=== PATIENT | female | born 1945 | race Caucasian/White ===

== ENCOUNTER 2025-08-19 18:42 | Inpatient (IN) ==
--- NOTE | 2025-08-19 19:36 | XRAY Report ---
PROCEDURE: XR Knee 2V LT INDICATIONS: Trauma TECHNIQUE: 2 views of the knee(s) were acquired. COMPARISON: None. FINDINGS: Markedly comminuted angulated fracture of the left femur distal diaphysis with lateral and posterior angulation of the distal fracture fragment in relation to the proximal diaphysis. Artifacts from overlying clothing or other extrinsic artifacts partially limit radiographic detail. Degenerative changes of the knee partially imaged. Vascular calcifications posteriorly. IMPRESSION: Fracture left femur as discussed above. Follow-up is needed. Reviewed by: Carlos Levi MD on 08/19/2025 7:33 PM PST Approved by: Carlos Levi MD on 08/19/2025 7:33 PM PST Station ID: [id number]
--- NOTE | 2025-08-19 19:40 | XRAY Report ---
PROCEDURE: XR Ankle 3V RT INDICATIONS: Ground-level fall, femur fracture TECHNIQUE: 3 views of the ankle were acquired. COMPARISON: None. FINDINGS: Limited exam. Osteopenia. Artifacts from overlying air cast and other extrinsic artifacts. Mild soft tissue swelling surrounding the right ankle predominantly laterally. On the frontal image #3 there is subtle irregularity at the distal fibula suspicious for nondisplaced transverse fracture. Otherwise no dislocation, no high attenuation soft tissue foreign body. Degenerative changes of the right tibiotalar, subtalar, talonavicular, calcaneocuboid with joint space narrowing and osteophytes. 5 mm posterior calcaneal enthesophyte calcification. IMPRESSION: Suspected nondisplaced fracture right distal fibula. Degenerative changes. If symptoms persist or worsen, or there is high clinical suspicion of right ankle abnormality, CT could be performed. Reviewed by: Carlos Levi MD on 08/19/2025 7:36 PM PST Approved by: Carlos Levi MD on 08/19/2025 7:36 PM PST Station ID: [id number]
--- NOTE | 2025-08-19 19:59 | ED Physician Documentation ---
PD HPI Fall Stated complaint Stated Complaint: GLF Chief complaint Chief Complaint: Ext Problem Additional information Additional information: BIBA. HPI from patient. Patient says she was leaving her house tonight, fell while going down some stairs outside of her house. Patient was using her cane, lost her balance and fell. She complains of right ankle pain, left knee pain. She was given fentanyl en route route by EMS; patient says she had mild improvement in symptoms. Patient denies head injury. Patient denies headache, neck pain, chest pain, abdominal pain, numbness, weakness. Patient does not take blood-thinning medications (except 81mg ASA QOD). Both the ankle and knee pain are worse with any movement, palpation. She has not attempted to weight-bear due to severe exacerbation of pain with movement, particularly the left knee pain. Meds/Allgy Allergies Allergies Allergy/AdvReac Type Severity Reaction Status Date / Time No Known Drug Allergies Allergy Verified 08/19/25 18:53 PFSH Active Problems All Active Problems (Updated 08/20/25 @ 03:20 by Deb Kuo RN, BSN) Hypertension (Chronic) Femur fracture, left (Acute) Ankle fracture, right (Acute) Medical History Medical History (Updated 08/20/25 @ 03:20 by Deb Kuo RN, BSN) Neuropathy Social History Social History Smoking Status: Unknown if ever smoked If you are a former smoker, when did you quit? (Date/Year): 1995 Second hand tobacco smoke exposure: No Do you dip or chew tobacco?: No Do you vape?: No Patient requests smoking cessation consult: No Initiate information on smoking cessation: No Level: Dependent Do you feel safe in your home environment?: Yes History of physical, verbal, emotional, or financial abuse?: No Exam Exam Vital Signs: Vital Signs x48h Temp Pulse Resp BP Pulse Ox 08/20/25 00:00 65 95 08/19/25 22:27 16 08/19/25 22:00 62 22 166/88 H 98 08/19/25 21:51 35.6 C L 60 24 166/88 H 94 Constitutional normal general appearance, no apparent distress and alert HENMT head/scalp atraumatic Eyes PERRL and EOMs intact bilaterally Neck/C-Spine cervical spine nontender and cervical full ROM noted Respiratory breath sounds equal bilaterally and clear to auscultation bilaterally Cardiovascular normal heart rate noted and regular rhythm noted Gastrointestinal abdomen soft to palpation and nontender to palpation Extremities right ankle mild edema, moderate TTP lateral aspect. left distal femur with severe TTP and deformity but no skin defect (such as laceration). NVI BLE (LTS intact in all toes with brisk capillary refill and strong palpable DP pulses, normal skin color of feet/toes bilaterally) Neurology [employer] dean II-XII intact and GCS 15 Psychiatry oriented x3 Skin skin color normal and no lacerations Results Vitals Vitals: Vital Signs - 24 hr 08/19/25 18:46 08/19/25 18:50 08/19/25 20:28 Temperature 36.6 C Temperature Source Skin Pulse Rate 60 Respiratory Rate 19 19 Blood Pressure 166/88 H O2 Saturation 97 O2 Source Room air Room air Sedation scale Pain Intensity 8 8 7 08/19/25 20:50 08/19/25 21:51 08/19/25 22:00 Temperature 35.6 C L 35.6 C L Temperature Source Temporal Artery Scan Temporal Artery Scan Pulse Rate 63 60 62 Respiratory Rate 13 24 22 Blood Pressure 166/88 H 166/88 H 166/88 H O2 Saturation 97 94 98 O2 Source Room air Room air Room air Sedation scale 1-Arouses easily Pain Intensity 3 4 4 08/19/25 22:20 08/19/25 22:27 08/20/25 00:00 Temperature Temperature Source Pulse Rate 65 Respiratory Rate 16 Blood Pressure O2 Saturation 95 O2 Source Room air Sedation scale Pain Intensity 3 0 Oxygen O2 Source Room air Labs Labs: Laboratory Tests 08/19/25 22:23 WBC 10.1 RBC 3.93 L Hgb 11.8 L Hct 36.5 L MCV 92.9 MCH 30.0 MCHC 32.3 RDW 11.9 L Plt Count 125 L MPV 10.0 Neut # (Auto) 8.7 H Lymph # (Auto) 0.8 L Hitchcock # (Auto) 0.5 Eos # (Auto) 0.0 Baso # (Auto) 0.0 Absolute Nucleated RBC 0.00 Nucleated RBC % 0.0 Sodium 138 Potassium 3.8 Chloride 105 Carbon Dioxide 27 Anion Gap 6.0 BUN 17 Creatinine 1.0 Estimated GFR (MDRD) 53 L Glucose 172 H Calcium 8.6 Total Bilirubin 0.6 AST 38 ALT 26 Alkaline Phosphatase 73 Total Protein 5.6 L Albumin 3.2 Globulin 2.4 Albumin/Globulin Ratio 1.3 Rads (name of study) right ankle xrays: Relevant Findings:: Prelim report reviewed and See rad report left knee xrays: Relevant Findings:: Prelim report reviewed and See rad report CTA LLE w/ runoff: Relevant Findings:: Prelim report reviewed and See rad report Procedures Splint (location) - Minor Lower extremity right: Splint applied by: Nurse Type of splint: Ankle airsplint Other: Patient tolerated well, No complications and Neurovascular intact Lower extremity left: Splint applied by: Physician and Nurse Type of splint: Fiberglass, Long leg, Posterior and Stirrup Other: Patient tolerated well, No complications, Neurovascular intact and Good alignment Reduction Body part reduced: Left Fracture or dislocation: Fracture Anesthesia: Dilaudid Reduction aftercare: NV intact, Alignment improved and Splint applied Procedural sedation Pre-Sedation Assessment Date: 08/19/25 Pre-Sedation Assessment Time must be prior to sedation: 20:54 Sedation Prep: Informed consent, Time out completed, Last meal (16:30), PE performed, IV O2 monitor, ET CO2 monitor and RT present ASA: ASA 2 - mild disease Sedation Medications: propofol (30 mg IVP followed by 10mg IVP followed by 10mg IVP for total of 50mg IVP by la) Mallampati classification: II Patient status during sedation: Responds to tactile, Maintained airway and Recovered uneventfully Sedation recovery: Recovered uneventfully and Back to baseline Time in sedation (Minutes): 25 PD Medical Decision Making ED course Complexity details: reviewed results, re-evaluated patient, considered differential and d/w patient ED course: Right ankle x-rays are suspicious for nondisplaced right distal fibula fracture. Left knee x-rays show a markedly comminuted and angulated fracture of the left femur distal diaphysis with lateral and posterior angulation of the distal fr acture fragment in relation to the proximal diaphysis. Patient is given 0.5 mg Dilaudid IV early in ED stay and she reported good analgesia with this intervention. I discussed this case with MACIE Larsen (orthopedics) who relayed the information to Dr. Cosby. Recommendation from orthopedics is to reduce the left knee fracture, placed splints on both the right ankle and the left knee, and obtain CT LLE the with runoff. Under conscious sedation, I reduced the left distal femur fracture. Splints are placed on both the right ankle and the left knee. The CT is without evidence of vascular injury; the CT does show extension of the fracture into the tibiofemoral joint. I recontacted MACIE Larsen with these findings, she again relayed this information to Dr. Cosby, and recommendation is admit to [facility] hospitalist service and Dr. Cosby will likely undertake OR repair of the femur fracture later in the day. I discussed this case with [facility] telehealth who accepts admit to [facility] hospitalist service. Discharge Plan Discharge Patient Disposition: 66 [facility] DC/Xfer Condition: Good Clinical Impression: Ankle fracture, right, Femur fracture, left Interventions: ED Admission Assessment Last Done: 08/20/25 02:53
[2025-08-19] MEDS: HYDROmorphone 0.5 MG/0.5 ML SYRINGE IVP STA (20:28)
[2025-08-19] MEDS: PROPOFOL 200 MG/20 ML VIAL IVP STA (22:18)
[2025-08-19 22:28] LABS: HCT - HEMATOCRIT 36.5 % (37.0-47.0); HGB - HEMOGLOBIN 11.8 g/dL (12.0-16.0); MEAN PLATELET VOLUME 10.0 fL (7.9-10.8); NRBC ABSOLUTE COUNT (AUTO) 0.00 x10^3/uL; NUCLEATED RED BLOOD CELLS AUTO 0.0 /100WBC; PLT - PLATELET COUNT 125 10^3/uL (130-450); RED CELL DISTRIBUTION WIDTH 11.9 % (12.0-15.0)
[2025-08-19 22:42] LABS: ALT ALANINE AMINOTRANSFERASE 26.0 IU/L (10-60); AST ASPARTATE AMINOTRANSFERASE 38.0 IU/L (10-42); BUN - BLOOD UREA NITROGEN 17.0 mg/dL (6-20); CARBON DIOXIDE - CO2 27.0 mmol/L (21-32); CREATININE 1.0 mg/dL (0.6-1.3); GFR - MDRD 53.0 (>89)
[2025-08-19] MEDS: SODIUM CHLORIDE 0.9% 1,000 ML IV STA (23:00)
[2025-08-19] MEDS: ONDANSETRON 4 MG/2 ML VIAL IVP STA (23:59)
--- NOTE | 2025-08-20 00:33 | CT Report ---
PROCEDURE: CT Angio Lower Extremity LT INDICATIONS: left femur fracture CONTRAST: [id number] TECHNIQUE: After the administration of intravenous contrast, a CT scan of the abdomen, pelvis and lower extremities (to the feet) was performed. Images were recorded and evaluated at appropriate window settings. Reformats: coronal and sagittal. For radiation dose reduction, the following was used: automated exposure control, adjustment of mA and/or kV according to patient size. COMPARISON: None. FINDINGS: Image quality: Excellent. Abdominal aorta: No evidence of acute aortic syndrome. No significant aneurysm. No significant atherosclerotic disease. Right lower extremity: Common iliac artery: Atherosclerotic calcifications without significant stenosis. External iliac artery: Atherosclerotic calcifications without significant stenosis. Common femoral artery: Atherosclerotic calcifications without significant stenosis Superficial femoral artery: Atherosclerotic calcifications without significant stenosis. Popliteal artery: Greater than 50% narrowing of the proximal popliteal artery secondary to atherosclerotic calcifications (5/252) Anterior tibial artery: No significant stenosis Peroneal artery: No significant stenosis. Posterior tibial artery: No significant stenosis visualized. Left lower extremity: Common iliac artery: Atherosclerotic calcifications without significant stenosis. External iliac artery: Atherosclerotic calcifications without significant stenosis. Common femoral artery: Atherosclerotic calcifications without significant stenosis. Superficial femoral artery: Atherosclerosis without significant stenosis. Popliteal artery: No significant stenosis.No acute vascular injury, particularly adjacent to the distal femoral fractures. A deep life skills coordinator volunteer off the supragenicular popliteal artery travels in close proximity to the fracture fragments. Anterior tibial artery: No significant atherosclerotic disease. Peroneal artery: No significant atherosclerotic disease. Posterior tibial artery: No significant atherosclerotic disease. OTHER: Lung bases and heart: Mild bibasilar atelectasis. Liver: No solid mass. Gallbladder and biliary tree: Spleen: No splenomegaly. Pancreas: No pancreatic ductal dilation. Adrenals: No adrenal nodule. Kidneys and ureters: Left renal cortical atrophy (severe atherosclerotic disease of the left renal artery). No hydronephrosis. No solid renal mass. Bowel and peritoneum: No bowel distension. No pathologic free fluid. Lymph nodes: No central or retroperitoneal adenopathy. Vessels: No infrarenal aortic aneurysm. Reproductive organs: Hysterectomy Bladder: No abnormal wall thickening, accounting for underdistention. Pelvic lymph nodes: No pelvic adenopathy by size criteria. Bones: Comminuted and mildly displaced distal left femoral fracture involving the distal metadiaphysis and extending into the tibiofemoral joint. Moderate left joint effusion is present. There is mild posterior lateral angulation of the dominant distal fracture fragments. Other: No significant ventral or inguinal hernia. IMPRESSION: Redemonstration of comminuted and mildly displaced distal left femoral fracture, as above. Moderate left knee joint effusion. No acute vascular injury in the left lower extremity. Branches off the supragenicular left popliteal artery traverse in close proximity to the left femoral fracture fragments. 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 Reviewed by: Jennifer Spangler MD on 08/20/2025 12:30 AM PST Approved by: Jennifer Spangler MD on 08/20/2025 12:30 AM PST Station ID: [id number]
[2025-08-20] MEDS ORDERED: hydrALAZINE INJ 20 MG/ML VIAL IVP PRN (01:42)
--- NOTE | 2025-08-20 02:05 | HISTORY & PHYSICAL EXAMINATION ---
Chief Complaint Chief Complaint Chief Complaint: LLE pain after fall History of Present Illness History Obtained From Exam Limitations: telemedicine History of Present Illness HPI Comment/Other: Mrs. Krishna is a 80F with a h/o hypertension. She presented to the ED after a fall. She explained that she was walking down some stairs and lost her balance. she fell on her left side, she did not hit her head. She did not experience any lightheadness or chestpain prior to fall. Imaging demonstrated distal femur fracture as well as left ankle fracture. ED physician discussed case with the orthopedic service who agreed to see her in consultation. This visit was performed using telehealth tools, including phone and live-video. patient provided verbal consent to complete this telemedicine encounter. During the time my interview and evaluation, the patient was located at [facility] in the [facility], I was located in [place]. Meds/Allgy Allergies Allergies Allergy/AdvReac Type Severity Reaction Status Date / Time No Known Drug Allergies Allergy Verified 08/19/25 18:53 PFSH Active Problems All Active Problems (Updated 08/20/25 @ 02:01 by Karena Min MD) Hypertension (Chronic) Femur fracture, left (Acute) Ankle fracture, right (Acute) Social History Social History Do you feel safe in your home environment?: Yes History of physical, verbal, emotional, or financial abuse?: No Review of Systems Status of ROS: 10 or more systems reviewed and unremarkable except as noted in history and below Exam Exam Vital Signs: Vital Signs x48h Temp Pulse Resp BP Pulse Ox 08/20/25 00:00 65 95 08/19/25 22:27 16 08/19/25 22:00 62 22 166/88 H 98 08/19/25 21:51 35.6 C L 60 24 166/88 H 94 08/19/25 20:50 35.6 C L 63 13 166/88 H 97 08/19/25 18:50 19 08/19/25 18:46 36.6 C 60 19 166/88 H 97 Constitutional normal general appearance and no apparent distress Cardiovascular normal heart rate noted and regular rhythm noted Extremities tenderness noted and deformity noted (LLE injury) Neurology no sensory deficits noted Skin skin color normal Conclusion/Plan Problem List (1) Femur fracture, left: Plan: Imaging reviewed: -Xray demonstrated comminuted displaced distal femur fracture with extension into the tibiofibula joint. noted joint effusion -CTA LLE vasculature intact -s/p reduction and splint in the ED -case discussed with orthopedic surgery for further management, Dr. Cosby to see in consultation -continue with neuro-vascular checks -optimize pain management -npo in anticipation of procedure -telemetry and serial vital checks (2) Ankle fracture, right: Plan: imaging reviewed.nondisplaced fracture right distal fibula -s/p splint in the ED -orthopedic consultation pending (3) Hypertension: Plan: home medication reviewed -as needed IV hydralazine for SBP >160 Plan Patient will be admitted to the hospitalist service under inpatient status. greater than 2 midnights expected for management. Lab Results Lab results reviewed: Yes 08/19/25 22:23 08/19/25 22:23 Core Measures Anticipated LOS I expect patient to be DC'd or transferred within 96 hours.: Yes DVT/VTE - Prophylaxis VTE/DVT Device ordered at admit?: Yes
[2025-08-20] MEDS ORDERED: HYDROmorphone 0.5 MG/0.5 ML SYRINGE IVP PRN ×2 (02:32→08:08)
[2025-08-20] MEDS ORDERED: SODIUM CHLORIDE FLUSH 0.9% 10 ML SYRINGE IVP PRN (02:32)
[2025-08-20] MEDS: SODIUM CHLORIDE 0.9% 1,000 ML IV SCH (03:03)
[2025-08-20] MEDS: ACETAMINOPHEN 1,000 MG/100 ML 1,000 MG/100 ML BAG IV PRN (03:06)
[2025-08-20] MEDS: ONDANSETRON 4 MG/2 ML VIAL IVP PRN (03:11)
[2025-08-20 04:38] LABS: HCT - HEMATOCRIT 34.3 % (37.0-47.0); HGB - HEMOGLOBIN 11.3 g/dL (12.0-16.0); MEAN PLATELET VOLUME 10.4 fL (7.9-10.8); NRBC ABSOLUTE COUNT (AUTO) 0.00 x10^3/uL; NUCLEATED RED BLOOD CELLS AUTO 0.0 /100WBC; PLT - PLATELET COUNT 143 10^3/uL (130-450); RED CELL DISTRIBUTION WIDTH 12.0 % (12.0-15.0)
[2025-08-20 04:54] LABS: BUN - BLOOD UREA NITROGEN 16.0 mg/dL (6-20); CARBON DIOXIDE - CO2 25.0 mmol/L (21-32); CREATININE 1.0 mg/dL (0.6-1.3); GFR - MDRD 53.0 (>89)
--- NOTE | 2025-08-20 07:36 | CONSULTATION NOTE ---
Referring Provider Name of Referring Provider:: Marcus Consult Date: 08/19/25 Chief Complaint Chief Complaint Chief Complaint: Left distal femur fracture; right distal fibular fracture; History of Present Illness History of Present Illness HPI Comment/Other: Consulted 08/19/25 on this 80-year-old female status post fall for comminuted angulated fracture of the left distal femur diaphysis and right distal fibular fracture. Patient states that she was rushing to do something outside in the dark and tripped and fell. She reports no other injuries. She also reports that her pain has been well-controlled overnight. [facility] Active Problems All Active Problems (Updated 08/20/25 @ 08:15 by Kianna Larsen PA-C) Neuropathy (Acute) Hypertension (Chronic) Femur fracture, left (Acute) Ankle fracture, right (Acute) Medical History Medical History (Updated 08/20/25 @ 08:15 by Kianna Larsen PA-C) Coronary artery disease Hyperlipidemia Surgical History Surgical History (Updated 08/20/25 @ 08:16 by Kianna Larsen PA-C) History of hysterectomy History of spinal fusion S/P CABG x 5 Social History Social History (Updated 08/20/25 @ 08:17 by Kianna Larsen PA-C) Smoking Status: Former smoker If you are a former smoker, when did you quit? (Date/Year): 1995 Second hand tobacco smoke exposure: No Do you dip or chew tobacco?: No Do you vape?: No Patient requests smoking cessation consult: No Initiate information on smoking cessation: No Level: Dependent Home Mobility Equipment: Cane and Walker Do you feel safe in your home environment?: Yes History of physical, verbal, emotional, or financial abuse?: No Meds/Allgy Home Medications Ambulatory Orders Medication Instructions Recorded Confirmed atenolol 50 mg tablet 50 mg PO DAILY 08/20/25 Allergies Allergies Allergy/AdvReac Type Severity Reaction Status Date / Time No Known Drug Allergies Allergy Verified 08/19/25 18:53 Results Lab Results Lab results reviewed: Yes 08/20/25 04:11 08/20/25 04:11 Other Lab Results: Lab Results x24hrs 08/20/25 08/19/25 Range/Units 04:11 22:23 WBC 9.1 10.1 (4.8-10.8) x10^3/uL RBC 3.69 L 3.93 L (4.20-5.40) 10^6/uL Hgb 11.3 L 11.8 L (12.0-16.0) g/dL Hct 34.3 L 36.5 L (37.0-47.0) % MCV 93.0 92.9 (81.0-99.0) fL MCH 30.6 30.0 (27.0-31.0) pg MCHC 32.9 32.3 (32.0-36.0) g/dL RDW 12.0 11.9 L (12.0-15.0) % Plt Count 143 125 L (130-450) 10^3/uL MPV 10.4 10.0 (7.9-10.8) fL Neut # (Auto) 7.6 H 8.7 H (1.5-6.6) 10^3/uL Lymph # (Auto) 1.0 L 0.8 L (1.5-3.5) 10^3/uL Iron # (Auto) 0.5 0.5 (0.0-1.0) 10^3/uL Eos # (Auto) 0.0 0.0 (0.0-0.7) 10^3/uL Baso # (Auto) 0.0 0.0 (0.0-0.1) 10^3/uL Absolute Nucleated RBC 0.00 0.00 x10^3/uL Nucleated RBC % 0.0 0.0 /100WBC Sodium 137 138 (135-145) mmol/L Potassium 3.8 3.8 (3.5-4.5) mmol/L Chloride 105 105 (101-111) mmol/L Carbon Dioxide 25 27 (21-32) mmol/L Anion Gap 7.0 6.0 (6-13) BUN 16 17 (6-20) mg/dL Creatinine 1.0 1.0 (0.6-1.3) mg/dL Estimated GFR (MDRD) 53 L 53 L (>89) Glucose 161 H 172 H (74-104) mg/dL Calcium 8.4 L 8.6 (8.5-10.3) mg/dL Total Bilirubin 0.6 (0.2-1.0) mg/dL AST 38 (10-42) IU/L ALT 26 (10-60) IU/L Alkaline Phosphatase 73 (42-121) IU/L Total Protein 5.6 L (6.4-8.9) g/dL Albumin 3.2 (3.2-5.5) g/dL Globulin 2.4 (2.1-4.2) g/dL Albumin/Globulin Ratio 1.3 (1.0-2.2) Diagnostic Imaging Results Diagnostic Imaging Results: positive Final report reviewed Diagnostic Imaging Results Comments: 09/11/25: XR L knee: Markedly comminuted angulated fracture of the left femur distal diaphysis with lateral and posterior angulation of the distal fracture fragment in relation to the proximal diaphysis. 08/19/25: XR R Ankle: Suspected nondisplaced fracture right distal fibula. Degenerative changes. If symptoms persist or worsen, or there is high clinical suspicion of right ankle abnormality, CT could be performed. 08/19/25 CTA LLE: Redemonstration of comminuted and mildly displaced distal left femoral fracture, as above. Moderate left knee joint effusion. No acute vascular injury in the left lower extremity. Branches off the supragenicular left popliteal artery traverse in close proximity to the left femoral fracture fragments. 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 Review of Systems Status of ROS: 10 or more systems reviewed and unremarkable except as noted in history and below Exam Exam Vital Signs: Vital Signs x48h Temp Pulse Pulse Resp BP Pulse Ox 08/20/25 05:19 36.2 C L 65 16 94/50 L 96 08/20/25 02:53 16 97 08/20/25 02:28 36.5 C 66 20 140/79 H 97 08/20/25 02:00 21 95 08/20/25 00:00 65 95 General appearance: alert, awake, oriented x 3, well-nourished Fracture: R distal fibula; L distal femur Head/Eyes: atraumatic Extremities/Vascular: pedal pulses intact, radial pulses intact Musculoskeletal: LLE splinted; NVI distally; dressing was not removed. R ankle in aircast; lateral edema & ecchymosis; non-TTP medial/deltoid Neuro/DISH CARRIER: alert, follows commands; NVI Skin: warm, dry, intact, without erythema, warmth, ecchymosis or obvious clinical deformity Psychiatry: normal affect Conclusion/Plan Problem List (1) Femur fracture, left: Qualifiers: Encounter type: initial encounter Femur location: distal physis (incl. Salter-Hicks) (2) Ankle fracture, right: Qualifiers: Encounter type: initial encounter Fracture type: closed Qualified Code(s): S82.891A - Other fracture of right lower leg, initial encounter for closed fracture Plan 80-year-old female status post mechanical fall resulting in: - Right distal fibular fracture - closed nondisplaced comminuted mildly displaced left femoral fracture without vascular injury Plan med mgmt per internal medicine bed rest pending definitive fixation OCTOR this morning with Dr. Cosby NPO; resume home diet postop pain control; bowel regimen IS anticoagulation per primary; resume postop PT/OT: WBAT with aircast RLE; NWB LLE pending updated orders from ortho CM for placement DW Dr. Cosby Lab Results Lab results reviewed: Yes 08/20/25 04:11 08/20/25 04:11 Diagnostic Imaging Results Diagnostic Imaging Results: positive Final report reviewed
[2025-08-20] MEDS ORDERED: ACETAMINOPHEN 1,000 MG/100 ML 1,000 MG/100 ML BAG IV PRN (08:04)
[2025-08-20] MEDS ORDERED: ONDANSETRON 4 MG/2 ML VIAL IVP PRN (08:08)
[2025-08-20] MEDS ORDERED: fentaNYL 100 MCG/2 ML VIAL IVP PRN (08:08)
[2025-08-20] MEDS ORDERED: METOCLOPRAMIDE 10 MG/2 ML VIAL IVP PRN (08:08)
[2025-08-20] MEDS ORDERED: NALOXONE 0.4 MG/ML VIAL IVP PRN (08:08)
[2025-08-20] MEDS ORDERED: MORPHINE 2 MG/ML CARPUJECT IVP PRN (08:08)
[2025-08-20] MEDS ORDERED: ATROPINE ABBOJECT 1 MG/10 ML SYRINGE IVP PRN (08:08)
[2025-08-20] MEDS ORDERED: ePHEDrine 50 MG/ML VIAL IVP PRN (08:08)
[2025-08-20] MEDS: LACTATED RINGERS 1,000 ML IV SCH (08:32)
[2025-08-20] MEDS: SODIUM CHLORIDE FLUSH 0.9% 10 ML SYRINGE IVP SCH (08:40)
[2025-08-20] MEDS ORDERED: HEPARIN 5,000 UNIT/ML VIAL SUBQ SCH (09:00)
--- NOTE | 2025-08-20 11:58 | PHARMACY PROGRESS NOTE ---
Best Possible Medication History Admit Date and Time: 08/20/25 0130 Home Medications Medication Instructions Recorded Confirmed Type atenolol 50 mg tablet 50 mg PO QAM 08/20/25 History psyllium 1 packet PO PRN PRN constipa tion 08/20/25 08/20/25 History Processed by: Pharmacy (Medication reconciliation completed by Document Processing Specialist, Nicole) Medications reviewed in ED?: No Medication History completed: Yes Patient Interview: Completed Secondary Source(s): Pharmacy records [facility] Statement: As the person ultimately responsible for medication therapy, providers are able to order a medication from an existing home medication list in [facility] via the "Reconcile Routine" prior to Confirmation of that medication by customer support executive. Such practice is discouraged except when the physician, in their clinical judgment, deems that a medical need exists for a medication without regard to previous use.
--- NOTE | 2025-08-20 12:23 | ANESTHESIA PROCEDURE NOTE ---
Pre-Anesthesia VS, & Labs Diagnosis Surgical Diagnosis:: Left femur fracture Procedure Procedure: ORIF left femur Vitals Vital Signs: Temp Pulse Resp BP Pulse Ox 98.8 C H 75 16 112/47 L 97 08/20/25 07:55 08/20/25 07:55 08/20/25 07:55 08/20/25 07:55 08/20/25 07:55 NPO NPO: >8 hours Is Patient ?: Not Applicable Lab Results Current Lab Results: Laboratory Tests 08/20/25 04:11: WBC 9.1, RBC 3.69 L, Hgb 11.3 L, Hct 34.3 L, MCV 93.0, MCH 30.6, MCHC 32.9, RDW 12.0, Plt Count 143, MPV 10.4, Neut # (Auto) 7.6 H, Lymph # (Auto) 1.0 L, [place] # (Auto) 0.5, Eos # (Auto) 0.0, Baso # (Auto) 0.0, Absolute Nucleated RBC 0.00, Nucleated RBC % 0.0, Sodium 137, Potassium 3.8, Chloride 105, Carbon Dioxide 25, Anion Gap 7.0, BUN 16, Creatinine 1.0, Estimated GFR (MDRD) 53 L, Glucose 161 H, Calcium 8.4 L 08/19/25 22:23: WBC 10.1, RBC 3.93 L, Hgb 11.8 L, Hct 36.5 L, MCV 92.9, MCH 30.0, MCHC 32.3, RDW 11.9 L, Plt Count 125 L, MPV 10.0, Neut # (Auto) 8.7 H, L ymph # (Auto) 0.8 L, [place] # (Auto) 0.5, Eos # (Auto) 0.0, Baso # (Auto) 0.0, Absolute Nucleated RBC 0.00, Nucleated RBC % 0.0, Sodium 138, Potassium 3.8, Chloride 105, Carbon Dioxide 27, Anion Gap 6.0, BUN 17, Creatinine 1.0, E stimated GFR (MDRD) 53 L, Glucose 172 H, Calcium 8.6, Total Bilirubin 0.6, AST 38, ALT 26, Alkaline Phosphatase 73, Total Protein 5.6 L, Albumin 3.2, Globulin 2.4, Albumin/Globulin Ratio 1.3 Lab results reviewed: Yes 08/20/25 04:11 08/20/25 04:11 Meds/Allgy Home Medications Ambulatory Orders Medication Instructions Recorded Confirmed atenolol 50 mg tablet 50 mg PO QAM 08/20/25 psyllium 1 packet PO PRN PRN constipa tion 08/20/25 08/20/25 Allergies Allergies Allergy/AdvReac Type Severity Reaction Status Date / Time No Known Drug Allergies Allergy Verified 08/19/25 18:53 PFSH Active Problems All Active Problems Neuropathy (Acute) Hypertension (Chronic) Femur fracture, left (Acute) Ankle fracture, right (Acute) Medical History Medical History Coronary artery disease Hyperlipidemia Surgical History Surgical History History of hysterectomy History of spinal fusion S/P CABG x 5 Social History Social History Smoking Status: Former smoker If you are a former smoker, when did you quit? (Date/Year): 1995 Second hand tobacco smoke exposure: No Do you dip or chew tobacco?: No Do you vape?: No Patient requests smoking cessation consult: No Initiate information on smoking cessation: No Level: Dependent Home Mobility Equipment: Cane and Walker Do you feel safe in your home environment?: Yes History of physical, verbal, emotional, or financial abuse?: No Anesthesia Exam (Expanded) Exam General: Alert, Oriented x3 and Cooperative Dental: Dentures full Upper and Dentures full Lower Mouth Openin Fingerbreadth Neck Mobility: Normal Mallampati classification: II Thyromental Distance: 4-6 cm Respiratory: Lungs clear and Normal breath sounds Cardiovascular: Regular rate Neurological: Normal speech Mental/Cognitive Status: Alert/Oriented X3 and Normal for patient Cognitive Status: Within normal limits Exam Exam Vital Signs: Vital Signs x48h Temp Pulse Resp BP BP Pulse Ox 08/20/25 07:55 98.8 C H 75 16 112/47 L 97 08/20/25 05:19 36.2 C L 65 16 94/50 L 96 Constitutional normal general appearance and no apparent distress Neck/C-Spine cervical full ROM noted Respiratory breath sounds equal bilaterally and normal respiratory effort Cardiovascular normal heart rate noted and regular rhythm noted Extremities Left femur fracture Neurology speech normal Plan Problem List (1) Femur fracture, left: Qualifiers: Encounter type: initial encounter Femur location: distal physis (incl. Salter-Hicks) (2) Ankle fracture, right: Qualifiers: Encounter type: initial encounter Fracture type: closed Qualified Code(s): S82.891A - Other fracture of right lower leg, initial encounter for closed fracture Plan 80-year-old female status post mechanical fall resulting in: - Right distal fibular fracture - closed nondisplaced comminuted mildly displaced left femoral fracture without vascular injury Plan med mgmt per internal medicine bed rest pending definitive fixation OCTOR this morning with Dr. Cosby NPO; resume home diet postop pain control; bowel regimen IS anticoagulation per primary; resume postop PT/OT: WBAT with aircast RLE; NWB LLE pending updated orders from ortho CM for placement DW Dr. Cosby Plan Anesthesia Type: General and Fascia [place] Block Regional Block: Per Surgeon's request for Post Op pain control Consent for Procedure(s) Verified and Reviewed: Yes Code Status: Attempt Resuscitation ASA Classification ASA classification: 3-Severe systemic disease Is this case an emergency?: Yes
[2025-08-20] MEDS ORDERED: BUPIVACAINE 0.25% PF 30 ML VIAL ONE (12:33)
[2025-08-20] MEDS ORDERED: fentaNYL 100 MCG/2 ML VIAL ONE (12:44)
[2025-08-20] MEDS ORDERED: MIDAZOLAM 2 MG/2 ML VIAL ONE (12:44)
[2025-08-20] MEDS ORDERED: LIDOCAINE-PF 2% 10 ML AMP SUBQ ONE (12:44)
[2025-08-20] MEDS ORDERED: PROPOFOL 200 MG/20 ML VIAL IVP ONE (12:45)
[2025-08-20] MEDS ORDERED: ACETAMINOPHEN 1,000 MG/100 ML 1,000 MG/100 ML BAG IV ONE (13:34)
[2025-08-20] MEDS: ceFAZolin 1 GM in SODIUM CHLORIDE 0.9% MINIBAG 100 ML IV ONE (13:37)
[2025-08-20] MEDS ORDERED: DEXAMETHASONE 4 MG/ML VIAL ONE (14:17)
[2025-08-20] MEDS ORDERED: ONDANSETRON 4 MG/2 ML VIAL ONE (14:17)
[2025-08-20] MEDS ORDERED: ROPIVACAINE 0.5% PF 20 ML VIAL ONE (15:00)
--- NOTE | 2025-08-20 15:57 | ANESTHESIA POST OP EVALUATION ---
Anesthesia Post Eval Post Anesthesia Eval Vitals: Last Vital Signs Temp 36.3 C L 08/20/25 15:50 Pulse 70 08/20/25 15:50 Resp 14 08/20/25 15:50 BP 93/58 L 08/20/25 15:50 Pulse Ox 97 08/20/25 15:50 CV Function Including HR & BP: Stable Pain Control: Satisfactory Nausea & Vomiting: Negative Mental Status: Baseline Respiratory Status: Airway Patent Hydration Status: Satisfactory Anesthesia Complications: None
--- NOTE | 2025-08-20 16:13 | XRAY Report ---
INDICATIONS: intra-op use TECHNIQUE: Interoperative fluoroscopic support COMPARISON: None. FINDINGS/IMPRESSION: Postoperative images during distal femoral fracture fixation. Please see operative report for further details Reviewed by: Gaudencio Marie MD on 08/20/2025 4:09 PM PST Approved by: Gaudencio Marie MD on 08/20/2025 4:09 PM PST Station ID: [id number]
[2025-08-20] MEDS: LACTATED RINGERS 500 ML IV ONE (18:33)
[2025-08-20 20:04] LABS: HCT - HEMATOCRIT 27.1 % (37.0-47.0); HGB - HEMOGLOBIN 8.4 g/dL (12.0-16.0)
[2025-08-21] MEDS: ACETAMINOPHEN 325 MG TABLET PO PRN (02:22)
[2025-08-21] MEDS: oxyCODONE 5 MG TABLET PO PRN (04:21)
--- NOTE | 2025-08-21 07:41 | POST OP PROGRESS NOTE ---
Subjective General Admit Date: 08/20/25 Procedure Date: 08/20/25 Post Op Days: 1 Procedure Performed: Retrograde nail left distal femur Other Other Information/Narrative: Pt w/o complaint. Pain controlled. Ortho Surgical Progress Note Problem List Problem List: med mgmt per primary pain control; bowel regimen OOB to chair & ambulate DVT prophylaxis: continue lovenox if sent to SNF/rehab; pt may also be dc'd on EC ASA 325 mg BID; continue until DC'd by ortho f/u ortho 10-14 days for staple removal PT/OT: strict NWB LLE; Gentle ROM L Knee as tolerated. WBAT RLE with aircast reinforce dressing PRN; change to silver dressing at DC; may continue compression wrap IS Pt may DC from ortho standpoint when cleared by medicine team DW Dr. Cosby Discharge Instructions: as above Review of Systems Status of ROS: 10 or more systems reviewed and unremarkable except as noted in history and below Exam Exam Vital Signs: Vital Signs x48h Temp Pulse Resp BP 08/21/25 02:45 36.8 C 72 16 104/43 L 08/21/25 01:45 37.2 C 80 16 108/53 L General appearance: alert, awake, oriented x 3, well-nourished Fracture: R distal fibula; L distal femur Head/Eyes: atraumatic Extremities/Vascular: pedal pulses intact, radial pulses intact; Compartments soft. Musculoskeletal: LLE Dressing clean dry intact. Compartments soft. NVI distally; dressing was not removed. 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
[2025-08-21 07:53] LABS: HCT - HEMATOCRIT 25.6 % (37.0-47.0); HGB - HEMOGLOBIN 8.7 g/dL (12.0-16.0); MEAN PLATELET VOLUME 9.9 fL (7.9-10.8); PLT - PLATELET COUNT 104.0 10^3/uL (130-450); RED CELL DISTRIBUTION WIDTH 12.7 % (12.0-15.0)
[2025-08-21 08:01] LABS: BUN - BLOOD UREA NITROGEN 18.0 mg/dL (6-20); CARBON DIOXIDE - CO2 25.0 mmol/L (21-32); CREATININE 1.1 mg/dL (0.6-1.3); GFR - MDRD 48.0 (>89)
[2025-08-21] MEDS: ceFAZolin 1 GM in SODIUM CHLORIDE 0.9% MINIBAG 100 ML IV SCH (08:06)
[2025-08-21] MEDS: ASPIRIN EC 325 MG TABLET PO SCH (08:59)
[2025-08-21] MEDS: MAGNESIUM OXIDE 400 MG TABLET PO SCH (09:00)
--- NOTE | 2025-08-21 11:34 | PROVIDER PROGRESS NOTE ---
Subjective Subjective Subjective: Yesterday, after surgery, patient had an episode of lethargy associated with hypotension. When her hemoglobin was rechecked, it was found to be 3 points lower. She is given a unit of blood. This morning, she is in good spirits. She has minimal pain in her left hip. She does endorse some pain in her left knee. She denies feeling lightheaded or dizzy. She is eager to start eating. She ate most of her breakfast; she states this was the first meal she has had since she is fallen. She understands that she has to work with physical therapy today, and is open to rehab. Current Medications Current Medications Current Medications: Current Medications Generic Name Dose Route Start Last Admin Trade Name Freq PRN Reason Stop Dose Admin Acetaminophen 650 mg 08/20/25 08:04 08/21/25 02:22 Acetaminophen 325 Mg Tablet PO 650 mg Q4HR PRN Administration Pain or Fever > 38C (100.4F) Aspirin 325 mg 08/21/25 09:00 08/21/25 08:59 Aspirin Ec 325 Mg Tablet PO 325 mg BID LUZ Administration Hydromorphone HCl 0.5 mg 08/20/25 02:32 Hydromorphone 0.5 Mg/0.5 Ml Syringe IVP Q2H PRN Pain 8 to 10 Sodium Chloride 1,000 mls @ 125 mls/hr 08/20/25 02:32 08/21/25 04:22 Normal Saline 0.9% IV 125 mls/hr .Q8H LUZ Administration Magnesium Oxide 400 mg 08/21/25 08:00 08/21/25 09:00 Magnesium Oxide 400 Mg Tablet PO 400 mg DAILYWM LUZ Administration Ondansetron HCl 4 mg 08/20/25 02:32 08/21/25 04:21 Ondansetron 4 Mg/2 Ml Vial IVP 4 mg Q6HR PRN Administration Nausea / Vomiting Oxycodone HCl 5 mg 08/20/25 08:04 08/21/25 04:21 Oxycodone 5 Mg Tablet PO 5 mg Q4HR PRN Administration Moderate Pain (Level 4-6) Sodium Chloride 10 ml 08/20/25 02:32 Sodium Chloride Flush 0.9% 10 Ml Syringe IVP PRN PRN NEEDED PER PROVIDER ORDERS Sodium Chloride 10 ml 08/20/25 09:00 08/21/25 09:00 Sodium Chloride Flush 0.9% 10 Ml Syringe IVP 10 ml 0100,0900,1700 LUZ Administration Objective Vital Signs/Intake & Output Reviewed Vital Signs: Yes Vital Signs: Vital Signs x48h Temp Pulse Resp BP Pulse Ox 08/21/25 08:20 97.7 F 72 20 101/48 L 97 Intake & Output: Intake & Output 08/18/25 08/19/25 08/20/25 08/21/25 23:59 23:59 23:59 23:59 Intake Total 2997 / 2997 2845 / 2845 Output Total 1050 / 1050 500 / 500 Balance 194 / 194 2345 / 2345 Weight (kg) 58.06 kg 64.5 kg Objective General Appearance: positive No acute distress and Alert; negative Anxious Eyes Bilateral: positive Normal inspection, PERRL and EOMI ENT: positive ENT inspection nml, Pharynx nml and No signs of dehydration Neck: positive Nml inspection, Thyroid nml and No JVD Respiratory: positive Chest non-tender, No respiratory distress and Breath sounds nml; negative Wheezes, Rales or Rhonchi Cardiovascular: positive Regular rate & rhythm, No murmur and No gallop; negative Tachycardia or Systolic murmur Abdomen: positive Non-tender, No organomegaly and No distention; negative Guarding or Splenomegaly Back: positive Nml inspection; negative CVA tenderness (R) or CVA tenderness (L) Skin: positive Color nml, No rash, Warm and Dry Extremities: positive Full ROM (Limited range of motion of left lower extremity due to pain. Able to wiggle bilateral toes. DP and PT pulses intact bilaterally.) and Other (Left lower extremity with Kerlix noted on left anterior hip with minimal drainage or bleeding. Fredo wrap all down left leg. Some bruising noted around left knee. Right ankle with extensive ecchymosis throughout with Fredo wrap in place.) Neurologic/Psychiatric: positive Oriented x3 and Mood/affect nml Lab Results 08/21/25 07:36 08/21/25 07:36 Other Labs: Lab Results x24hrs 08/21/25 08/20/25 08/20/25 Range/Units 07:36 21:15 19:55 WBC 8.5 (4.8-10.8) x10^3/uL RBC 2.77 L (4.20-5.40) 10^6/uL Hgb 8.7 L 8.4 L (12.0-16.0) g/dL Hct 25.6 L 27.1 L (37.0-47.0) % MCV 92.4 (81.0-99.0) fL MCH 31.4 H (27.0-31.0) pg MCHC 34.0 (32.0-36.0) g/dL RDW 12.7 (12.0-15.0) % Plt Count 104 L (130-450) 10^3/uL MPV 9.9 (7.9-10.8) fL Sodium 140 (135-145) mmol/L Potassium 3.8 (3.5-4.5) mmol/L Chloride 110 (101-111) mmol/L Carbon Dioxide 25 (21-32) mmol/L Anion Gap 5.0 L (6-13) BUN 18 (6-20) mg/dL Creatinine 1.1 (0.6-1.3) mg/dL Estimated GFR (MDRD) 48 L (>89) Glucose 109 H (74-104) mg/dL Calcium 7.7 L (8.5-10.3) mg/dL Magnesium 1.5 L (1.7-2.3) mg/dL Blood Type O POSITIVE Blood Type Recheck Antibody Screen NEGATIVE Crossmatch IS Only See Detail 08/20/25 Range/Units 04:11 WBC (4.8-10.8) x10^3/uL RBC (4.20-5.40) 10^6/uL Hgb (12.0-16.0) g/dL Hct (37.0-47.0) % MCV (81.0-99.0) fL MCH (27.0-31.0) pg MCHC (32.0-36.0) g/dL RDW (12.0-15.0) % Plt Count (130-450) 10^3/uL MPV (7.9-10.8) fL Sodium (135-145) mmol/L Potassium (3.5-4.5) mmol/L Chloride (101-111) mmol/L Carbon Dioxide (21-32) mmol/L Anion Gap (6-13) BUN (6-20) mg/dL Creatinine (0.6-1.3) mg/dL Estimated GFR (MDRD) (>89) Glucose (74-104) mg/dL Calcium (8.5-10.3) mg/dL Magnesium (1.7-2.3) mg/dL Blood Type Blood Type Recheck O POSITIVE Antibody Screen Crossmatch IS Only Assessment/Plan Problem List (1) Femur fracture, left: Impression: Patient presented with a comminuted angulated fracture of the left distal femur diaphysis and right distal fibular fracture. Completed retrograde intramedullary nail for fixation on 08/20. Tolerated the procedure well. Orthopedic surgery following: Recommended DC on aspirin 325 mg twice a day to be continued until discontinued by orthopedic surgery. Follow-up with them in 10 to 14 days for staple removal. Strict nonweightbearing on left lower extremity. For dressing, they recommend changing as needed, can be changes to with dressing at discharge, and can continue compression wrap. Continue pain control with Tylenol as needed for mild pain, oxycodone for moderate pain, and Dilaudid for severe pain. Plan to work with physical therapy today. Likely will recommend SNF on discharge. Qualifiers: Encounter type: subsequent encounter Femur location: distal physis (incl. Salter-Hicks) Fracture healing: with routine healing Salter-Hicks Fracture Type: unspecified configuration Qualified Code(s): S79.102D - Unspecified physeal fracture of lower end of left femur, subsequent encounter for fracture with routine healing (2) Ankle fracture, right: Impression: Right distal fibular fracture to be managed nonoperatively, can be weightbearing as tolerated with Aircast of the right lower extremity. Qualifiers: Encounter type: initial encounter Fracture type: closed Qualified Code(s): S82.891A - Other fracture of right lower leg, initial encounter for closed fracture (3) Hypertension: Impression: Patient with a history of hypertension. Hold atenolol at this time due to borderline low blood pressures. Qualifiers: Hypertension type: unspecified Qualified Code(s): I10 - Essential (primary) hypertension (4) S/P CABG x 5: Impression: Patient with a history of coronary artery disease s/p CABG x 5 in 1995. Has had uneventful cardiac history since then, follows with cardiology annually (in [place]). Maintained on aspirin daily. Currently, on a higher dose of aspirin for DVT prophylaxiscontinue 81 mg daily once this course has been completed as per recommended by orthopedic surgery.
--- NOTE | 2025-08-21 14:01 | PT Plan of Care ---
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 Pt reports h/o cervical spine fusion in 2023 to treat BUE neuropathy without change in neuropathy symptoms. Pt reports pain and sens ory changes in all 4 limbs, worst in RUE and RLE. Occasional spasms/tremors in RLE. Pt states her doctors are unclear of cause of these symptoms. Cleared for PT eval by ortho and hospitalist. RLE WBAT with aircast and LLE STRICT NWB. Upon PT eval, pt reports minimal pain at rest but is concerned about pain with movement. Pre medicated per RN. Pt participates well and follows all cues appropriately, able to transfer to EOB with mod to maxA. Unable to maintain seated EOB primarily d/t IV bleeding, secondarily d/t RLE spasms and difficulty maintaining seated d/t spasms and pain. Pt requires maxAx1 for sit to supine transfer. Able to participate in rolling and bed mobility with modAx1. Pt presents with complex medical and surgical hx and limited mobility d/t injuries and WBing status. She will benefit from continued skilled PT in acute setting to progress mobility and functional indep. When medically clear, PT rec dc to SNF for further rehab. Goals Improve bed mobility to: Minimal Assist Improve supine to sit to: Minimal Assist Improve sit to stand to: Moderate Assist Improve pivot transfer ability Moderate Assist to: Improve sit to supine to: Minimal Assist Improve gait ability to: Mod A Assistive Device Used: Front Wheeled Walker Other gait goal: maintain WBing precautions 100% of time Improve Sitting Balance to: Good Improve Standing Balance to: Fair PT Plan of Care Frequency 1-2x/day Duration Until discharge Discharge Recommendations [facility] Other tbd Transport Needs at Discharge [facility] Other BLS d/t subacute fx's, limited trunk control
[2025-08-22 06:58] LABS: HCT - HEMATOCRIT 23.9 % (37.0-47.0); HGB - HEMOGLOBIN 7.8 g/dL (12.0-16.0); MEAN PLATELET VOLUME 10.7 fL (7.9-10.8); PLT - PLATELET COUNT 95.0 10^3/uL (130-450); RED CELL DISTRIBUTION WIDTH 12.7 % (12.0-15.0)
[2025-08-22 07:10] LABS: BUN - BLOOD UREA NITROGEN 16.0 mg/dL (6-20); CARBON DIOXIDE - CO2 25.0 mmol/L (21-32); CREATININE 0.9 mg/dL (0.6-1.3); GFR - MDRD 60.0 (>89)
--- NOTE | 2025-08-22 09:21 | POST OP PROGRESS NOTE ---
Subjective General Admit Date: 08/20/25 Procedure Date: 08/20/25 Post Op Days: 2 Procedure Performed: Retrograde nail left distal femur Other Other Information/Narrative: Pt w/o new complaint; pain currently controlled. Per nursing, pt has not been moving d/t fear of pain. Ortho Surgical Progress Note Problem List Problem List: med mgmt per primary pain control; bowel regimen OOB to chair & ambulate DVT prophylaxis: continue lovenox if sent to SNF/rehab; pt may also be dc'd on EC ASA 325 mg BID; continue until DC'd by ortho f/u ortho 10-14 days for staple removal PT/OT: strict NWB LLE; Gentle ROM L Knee as tolerated. WBAT RLE with aircast reinforce dressing PRN; change to silver dressing at DC; may continue compression wrap IS willfollow & re-assess for DC 08/23/[address] Cosby Discharge Instructions: as above Review of Systems Status of ROS: 10 or more systems reviewed and unremarkable except as noted in history and below Exam Exam Vital Signs: Vital Signs x48h Temp Pulse Resp BP Pulse Ox 08/22/25 08:11 36.7 C 99 14 117/60 94 General appearance: alert, awake, oriented x 3, well-nourished Fracture: R distal fibula; L distal femur Head/Eyes: atraumatic Extremities/Vascular: pedal pulses intact, radial pulses intact; Compartments soft. Musculoskeletal: LLE Dressing clean dry intact. Compartments soft. NVI distally; dressing was not removed. 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
--- NOTE | 2025-08-22 12:27 | PROVIDER PROGRESS NOTE ---
Subjective Subjective Subjective: Today, patient is doing well. She is having spasms in her legs. She was able to sit on the side of bed but had some pain associated with it. She is looking forward to rehab. Current Medications Current Medications Current Medications: Current Medications Generic Name Dose Route Start Last Admin Trade Name Freq PRN Reason Stop Dose Admin Acetaminophen 650 mg 08/20/25 08:04 08/21/25 12:43 Acetaminophen 325 Mg Tablet PO 650 mg Q4HR PRN Administration Pain or Fever > 38C (100.4F) Aspirin 325 mg 08/21/25 09:00 08/22/25 08:09 Aspirin Ec 325 Mg Tablet PO 325 mg BID LUZ Administration Hydromorphone HCl 0.5 mg 08/20/25 02:32 Hydromorphone 0.5 Mg/0.5 Ml Syringe IVP Q2H PRN Pain 8 to 10 Magnesium Oxide 400 mg 08/21/25 08:00 08/22/25 08:09 Magnesium Oxide 400 Mg Tablet PO 400 mg DAILYWM LUZ Administration Ondansetron HCl 4 mg 08/20/25 02:32 08/21/25 04:21 Ondansetron 4 Mg/2 Ml Vial IVP 4 mg Q6HR PRN Administration Nausea / Vomiting Oxycodone HCl 5 mg 08/20/25 08:04 08/22/25 10:05 Oxycodone 5 Mg Tablet PO 5 mg Q4HR PRN Administration Moderate Pain (Level 4-6) Polyethylene Glycol 17 gm 08/23/25 09:00 Polyethylene Glycol 3350 17 Gm Packet PO DAILY LUZ Sodium Chloride 10 ml 08/20/25 02:32 Sodium Chloride Flush 0.9% 10 Ml Syringe IVP PRN PRN NEEDED PER PROVIDER ORDERS Sodium Chloride 10 ml 08/20/25 09:00 08/22/25 08:09 Sodium Chloride Flush 0.9% 10 Ml Syringe IVP Not Given 0100,0900,1700 [facility] Objective Vital Signs/Intake & Output Reviewed Vital Signs: Yes Vital Signs: Vital Signs x48h Temp Pulse Resp BP Pulse Ox 08/22/25 08:11 98.1 F 99 14 117/60 94 Intake & Output: Intake & Output 08/19/25 08/20/25 08/21/25 08/22/25 23:59 23:59 23:59 23:59 Intake Total 2997 / 2997 5235 / 5235 2360 / 2360 Output Total 1050 / 1050 725 / 725 700 / 700 Balance 194 / 194 4510 / 4510 1660 / 1660 Weight (kg) 58.06 kg 64.5 kg Objective General Appearance: positive No acute distress and Alert; negative Anxious Eyes Bilateral: positive Normal inspection, PERRL and EOMI ENT: positive ENT inspection nml, Pharynx nml and No signs of dehydration Neck: positive Nml inspection, Thyroid nml and No JVD Respiratory: positive Chest non-tender, No respiratory distress and Breath sounds nml; negative Wheezes, Rales or Rhonchi Cardiovascular: positive Regular rate & rhythm, No murmur and No gallop; negative Tachycardia or Systolic murmur Abdomen: positive Non-tender, No organomegaly and No distention; negative Guarding or Splenomegaly Back: positive Nml inspection; negative CVA tenderness (R) or CVA tenderness (L) Skin: positive Color nml, No rash, Warm and Dry Extremities: positive Full ROM (Limited range of motion of left lower extremity due to pain. Able to wiggle bilateral toes. DP and PT pulses intact bilaterally.) and Other (Left lower extremity with Kerlix noted on left anterior hip with minimal drainage or bleeding. Fredo wrap all down left leg. Some bruising noted around left knee. Right ankle with extensive ecchymosis throughout with Fredo wrap in place.) Neurologic/Psychiatric: positive Oriented x3 and Mood/affect nml Lab Results 08/22/25 06:25 08/22/25 06:25 Other Labs: Lab Results x24hrs 08/22/25 Range/Units 06:25 WBC 6.6 (4.8-10.8) x10^3/uL RBC 2.53 L (4.20-5.40) 10^6/uL Hgb 7.8 L (12.0-16.0) g/dL Hct 23.9 L (37.0-47.0) % MCV 94.5 (81.0-99.0) fL MCH 30.8 (27.0-31.0) pg MCHC 32.6 (32.0-36.0) g/dL RDW 12.7 (12.0-15.0) % Plt Count 95 L (130-450) 10^3/uL MPV 10.7 (7.9-10.8) fL Sodium 138 (135-145) mmol/L Potassium 3.4 L (3.5-4.5) mmol/L Chloride 110 (101-111) mmol/L Carbon Dioxide 25 (21-32) mmol/L Anion Gap 3.0 L (6-13) BUN 16 (6-20) mg/dL Creatinine 0.9 (0.6-1.3) mg/dL Estimated GFR (MDRD) 60 L (>89) Glucose 108 H (74-104) mg/dL Calcium 7.4 L (8.5-10.3) mg/dL Magnesium 1.6 L (1.7-2.3) mg/dL Assessment/Plan Problem List (1) Femur fracture, left: Impression: Patient presented with a comminuted angulated fracture of the left distal femur diaphysis and right distal fibular fracture. Completed retrograde intramedullary nail for fixation on 08/20. Tolerated the procedure well. Orthopedic surgery following: Recommended DC on aspirin 325 mg twice a day to be continued until discontinued by orthopedic surgery. Follow-up with them in 10 to 14 days for staple removal. Strict nonweightbearing on left lower extremity. For dressing, they recommend changing as needed, can be changes to with dressing at discharge, and can continue compression wrap. Continue pain control with Tylenol as needed for mild pain, oxycodone for moderate pain, and Dilaudid for severe pain. Patient medically cleared; plan for SNF placement awaiting acceptance and authorization. Qualifiers: Encounter type: subsequent encounter Femur location: distal physis (incl. Salter-Hicks) Fracture healing: with routine healing Salter-Hicks Fracture Type: unspecified configuration Qualified Code(s): S79.102D - Unspecified physeal fracture of lower end of left femur, subsequent encounter for fracture with routine healing (2) Ankle fracture, right: Impression: Right distal fibular fracture to be managed nonoperatively, can be weightbearing as tolerated with Aircast of the right lower extremity. Qualifiers: Encounter type: initial encounter Fracture type: closed Qualified Code(s): S82.891A - Other fracture of right lower leg, initial encounter for closed fracture (3) Hypertension: Impression: Patient with a history of hypertension. Hold atenolol at this time due to borderline low blood pressures. Qualifiers: Hypertension type: unspecified Qualified Code(s): I10 - Essential (primary) hypertension (4) S/P CABG x 5: Impression: Patient with a history of coronary artery disease s/p CABG x 5 in 1995. Has had uneventful cardiac history since then, follows with cardiology annually (in [place]). Maintained on aspirin daily. Currently, on a higher dose of aspirin for DVT prophylaxiscontinue 81 mg daily once this course has been completed as per recommended by orthopedic surgery.
[2025-08-23 06:01] LABS: HCT - HEMATOCRIT 22.4 % (37.0-47.0); HGB - HEMOGLOBIN 7.4 g/dL (12.0-16.0); MEAN PLATELET VOLUME 10.5 fL (7.9-10.8); PLT - PLATELET COUNT 105.0 10^3/uL (130-450); RED CELL DISTRIBUTION WIDTH 12.5 % (12.0-15.0)
[2025-08-23 06:21] LABS: BUN - BLOOD UREA NITROGEN 14.0 mg/dL (6-20); CARBON DIOXIDE - CO2 24.0 mmol/L (21-32); CREATININE 0.8 mg/dL (0.6-1.3); GFR - MDRD 69.0 (>89)
--- NOTE | 2025-08-23 10:57 | PROVIDER PROGRESS NOTE ---
Subjective Subjective Subjective: Today, patient is doing well. She is having spasms in her legs. She was able to sit on the side of bed but had some pain associated with it. She is looking forward to rehab. Overnight, she did require a straight catherization. She may need a Goodrich. Current Medications Current Medications Current Medications: Current Medications Generic Name Dose Route Start Last Admin Trade Name Freq PRN Reason Stop Dose Admin Acetaminophen 650 mg 08/20/25 08:04 08/21/25 12:43 Acetaminophen 325 Mg Tablet PO 650 mg Q4HR PRN Administration Pain or Fever > 38C (100.4F) Aspirin 325 mg 08/21/25 09:00 08/23/25 09:24 Aspirin Ec 325 Mg Tablet PO 325 mg BID LUZ Administration Hydromorphone HCl 0.5 mg 08/20/25 02:32 Hydromorphone 0.5 Mg/0.5 Ml Syringe IVP Q2H PRN Pain 8 to 10 Magnesium Oxide 400 mg 08/21/25 08:00 08/23/25 09:24 Magnesium Oxide 400 Mg Tablet PO 400 mg DAILYWM LUZ Administration Ondansetron HCl 4 mg 08/20/25 02:32 08/21/25 04:21 Ondansetron 4 Mg/2 Ml Vial IVP 4 mg Q6HR PRN Administration Nausea / Vomiting Oxycodone HCl 5 mg 08/20/25 08:04 08/23/25 00:33 Oxycodone 5 Mg Tablet PO 5 mg Q4HR PRN Administration Moderate Pain (Level 4-6) Polyethylene Glycol 17 gm 08/23/25 09:00 08/23/25 09:25 Polyethylene Glycol 3350 17 Gm Packet PO 17 gm DAILY LUZ Administration Sodium Chloride 10 ml 08/20/25 02:32 Sodium Chloride Flush 0.9% 10 Ml Syringe IVP PRN PRN NEEDED PER PROVIDER ORDERS Sodium Chloride 10 ml 08/20/25 09:00 08/23/25 10:15 Sodium Chloride Flush 0.9% 10 Ml Syringe IVP 10 ml 0100,0900,1700 LUZ Administration Objective Vital Signs/Intake & Output Reviewed Vital Signs: Yes Vital Signs: Vital Signs x48h Temp Pulse Resp BP Pulse Ox 08/23/25 08:33 97.9 F 91 16 111/57 L 94 08/23/25 05:00 97.9 F 102 H 16 126/65 94 Intake & Output: Intake & Output 08/20/25 08/21/25 08/22/25 08/23/25 23:59 23:59 23:59 23:59 Intake Total 2997 / 2997 5235 / 5235 3080 / 3080 240 / 240 Output Total 1050 / 1050 725 / 725 1550 / 1550 300 / 300 Balance 1947 / 1947 4510 / 4510 1530 / 1530 -60 / -60 Weight (kg) 64.5 kg Objective General Appearance: positive No acute distress and Alert; negative Anxious Eyes Bilateral: positive Normal inspection, PERRL and EOMI ENT: positive ENT inspection nml, Pharynx nml and No signs of dehydration Neck: positive Nml inspection, Thyroid nml and No JVD Respiratory: positive Chest non-tender, No respiratory distress and Breath sounds nml; negative Wheezes, Rales or Rhonchi Cardiovascular: positive Regular rate & rhythm, No murmur and No gallop; negative Tachycardia or Systolic murmur Abdomen: positive Non-tender, No organomegaly and No distention; negative Guarding or Splenomegaly Back: positive Nml inspection; negative CVA tenderness (R) or CVA tenderness (L) Skin: positive Color nml, No rash, Warm and Dry Extremities: positive Full ROM (Limited range of motion of left lower extremity due to pain. Able to wiggle bilateral toes. DP and PT pulses intact bilaterally.) and Other (Left lower extremity with Kerlix noted on left anterior hip with minimal drainage or bleeding. Fredo wrap all down left leg. Some bruising noted around left knee. Right ankle with extensive ecchymosis throughout with Fredo wrap in place.) Neurologic/Psychiatric: positive Oriented x3 and Mood/affect nml Lab Results 08/23/25 05:25 08/23/25 05:25 Other Labs: Lab Results x24hrs 08/23/25 Range/Units 05:25 WBC 5.9 (4.8-10.8) x10^3/uL RBC 2.41 L (4.20-5.40) 10^6/uL Hgb 7.4 L (12.0-16.0) g/dL Hct 22.4 L (37.0-47.0) % MCV 92.9 (81.0-99.0) fL MCH 30.7 (27.0-31.0) pg MCHC 33.0 (32.0-36.0) g/dL RDW 12.5 (12.0-15.0) % Plt Count 105 L (130-450) 10^3/uL MPV 10.5 (7.9-10.8) fL Sodium 136 (135-145) mmol/L Potassium 3.7 (3.5-4.5) mmol/L Chloride 108 (101-111) mmol/L Carbon Dioxide 24 (21-32) mmol/L Anion Gap 4.0 L (6-13) BUN 14 (6-20) mg/dL Creatinine 0.8 (0.6-1.3) mg/dL Estimated GFR (MDRD) 69 L (>89) Glucose 111 H (74-104) mg/dL Calcium 7.8 L (8.5-10.3) mg/dL Assessment/Plan Problem List (1) Femur fracture, left: Impression: Patient presented with a comminuted angulated fracture of the left distal femur diaphysis and right distal fibular fracture. Completed retrograde intramedullary nail for fixation on 08/20. Tolerated the procedure well. Orthopedic surgery following: Recommended DC on aspirin 325 mg twice a day to be continued until discontinued by orthopedic surgery. Follow-up with them in 10 to 14 days for staple removal. Strict nonweightbearing on left lower extremity. For dressing, they recommend changing as needed, can be changes to with dressing at discharge, and can continue compression wrap. Continue pain control with Tylenol as needed for mild pain, oxycodone for moderate pain, and Dilaudid for severe pain. Patient medically cleared; plan for SNF placement awaiting acceptance and authorization. Qualifiers: Encounter type: subsequent encounter Femur location: distal physis (incl. Salter-Hicks) Fracture healing: with routine healing Salter-Hicks Fracture Type: unspecified configuration Qualified Code(s): S79.102D - Unspecified physeal fracture of lower end of left femur, subsequent encounter for fracture with routine healing (2) Ankle fracture, right: Impression: Right distal fibular fracture to be managed nonoperatively, can be weightbearing as tolerated with Aircast of the right lower extremity. Qualifiers: Encounter type: initial encounter Fracture type: closed Qualified Code(s): S82.891A - Other fracture of right lower leg, initial encounter for closed fracture (3) Postoperative anemia: Impression: Patient's hemoglobin did drop after surgery. Her baseline is around 11.3, and she dropped to 8.4. Initially, she was hypotensive and she was transfused 1 unit of packed red blood cells on 08/20. Hemoglobin has dropped further. Her surgical site is dry, intact. Minimal blood loss noted. Blood pressure is stabilized. Continue to monitor. Transfuse for hemoglobin less than 7. (4) Acute urinary retention: Impression: Patient has been straight catheterized [address] Goodrich catheter if continues to retain. (5) Hypertension: Impression: Patient with a history of hypertension. Hold atenolol at this time due to borderline low blood pressures. Qualifiers: Hypertension type: unspecified Qualified Code(s): I10 - Essential (primary) hypertension (6) S/P CABG x 5: Impression: Patient with a history of coronary artery disease s/p CABG x 5 in 1995. Has had uneventful cardiac history since then, follows with cardiology annually (in [place]). Maintained on aspirin daily. Currently, on a higher dose of aspirin for DVT prophylaxiscontinue 81 mg daily once this course has been completed as per recommended by orthopedic surgery.
[2025-08-23 16:07] VITALS: O2SAT 95
--- OUTSIDE RECORDS SUMMARY | 2025-08-23 23:18 | EXTERNAL MEDICAL SUMMARY RPT | Encounter Summary ---
Author Organization [facility] Address [address] [place] [address] Care Team Providers Care Ammunition Components Inspector Name Role Phone Taylor Iqbal Teja [place] Unavailable [phone] Obdulio Barnett MD Primary Care Provider Мария Tyson MD Primary Care Provider [phone] Encounter Details Date Type Department Care Team (Late st Contact Info) Description 09/28/2020 Orders Only [facility] [address] [place] [address] Obdulio Barnett MD [facility] [address] [place], [place] [id number] Social History Tobacco Use Types Packs/Day Years Used Date Smoking Tobacco: Former Cigarettes Q uit: 11/17/1995 Smokeless Tobacco: Never Alcohol Use Standard Drinks/Week Comments Yes 1 (1 standard drink = 0.6 oz pur e alcohol) 1 glass wind day Comments No Sex and Gender Information Value Date Recorded Sex Assigned at Female 03/27/2023 1:22 PM PDT Legal Sex Female 11:00 AM PST Gender Identity Female 03/27/2023 1:22 PM PDT Sexual Orientation Not on file documented as of this encounter Plan of Treatment Upcoming Encounters Date Type Department Care Team (Late st Contact Info) Description 09/30/2025 11:40 AM PST Office Visit [facility] [address] [place] [address] Antoine Kee MD [address] [place] [address] documented as of this encounter Visit Diagnoses Not on filedocumented in this encounter Care Teams Ammunition Components Inspector Relationship Specialty Start Date End Date Obdulio Barnett MD [facility] [address] [place] [address] PCP - General 08/27/20 01/25/21 Мария Tyson MD [address] [place] [address] PCP - General 01/26/21 Taylor Iqbal PAHowardC [id number] [address] Cardiology PA/CNC MACHINIST: Auto-assigned Cardiology 09/01/14 documented as of this encounter
--- OUTSIDE RECORDS SUMMARY | 2025-08-23 23:18 | EXTERNAL MEDICAL SUMMARY RPT | Encounter Summary ---
Author Organization [facility] Address [address] [place] [address] Care Team Providers Care Rn Maternity Name Role Phone Taylor Iqbal PA-C Unavailable [phone] Мария Tyson MD Primary Care Provider [phone] Encounter Details Date Type Department Care Team (Late st Contact Info) Description 08/02/2022 Automated Outreach Text S ent - Pt has overdue lab(s) - Complete at Lab Social History Tobacco Use Types Packs/Day Years Used Date Smoking Tobacco: Former Cigarettes 1 28 0 11/17/1967 - 11/17/1995 Smokeless Tobacco: Never Alcohol Use Standard [...] Description 09/30/2025 11:40 AM PST Office Visit [facility] [address] [place] [address] Antoine Kee MD [address] [place] [address] documented as of this encounter Visit Diagnoses Not on filedocumented in this encounter Care Teams Rn Maternity Relationship Specialty Start Date End Date Мария Tyson MD [address] [place] [address] PCP - General 01/26/21 Taylor Iqbal PAHowardC [id number] [address] Cardiology PA/FISHER MUSSEL: Auto-assigned Cardiology 09/01/14 documented as of this encounter
--- OUTSIDE RECORDS SUMMARY | 2025-08-23 23:18 | EXTERNAL MEDICAL SUMMARY RPT | Encounter Summary ---
Author Organization [facility] Address [address] [place] [address] Care Team Providers Care Medical Billing Supervisor Name Role Phone Taylor Iqbal PA-C Unavailable [phone] Мария Tyson MD Primary Care Provider [phone] Encounter Details Date Type Department Care Team (Late st Contact Info) Description 04/23/2024 Automated Patient Message [address] [place] [phone] Social History Tobacco Use Types Packs/Day Years [...] Description 09/30/2025 11:40 AM PST Office Visit [facility] [address] [place] [address] Antoine Kee MD [address] [place] [address] documented as of this encounter Visit Diagnoses Not on filedocumented in this encounter Care Teams Medical Billing Supervisor Relationship Specialty Start Date End Date Мария Tyson MD [address] [place] [address] PCP - General 01/26/21 Taylor Iqbal PA-C [id number] [address] Cardiology PA/CERTIFIED NURSING ATTENDANT: Auto-assigned Cardiology 09/01/14 documented as of this encounter
--- OUTSIDE RECORDS SUMMARY | 2025-08-23 23:18 | EXTERNAL MEDICAL SUMMARY RPT | Encounter Summary ---
Author Organization [facility] Address [address] [place] [address] Care Team Providers Care Headend Technician Name Role Phone Taylor Iqbal PA-C Unavailable [phone] Мария Tyson MD Primary Care Provider [phone] Encounter Details Date Type Department Care Team (Late st Contact Info) Description 09/24/2024 Automated Patient Message [facility] [address] [facility] [address] [place] [id number] Social History Tobacco Use Types Packs/Day Years [...] Description 09/30/2025 11:40 AM PST Office Visit [facility] [address] [place] [address] Antoine Kee MD [address] [place] [address] documented as of this encounter Visit Diagnoses Not on filedocumented in this encounter Care Teams Headend Technician Relationship Specialty Start Date End Date Мария Tyson MD [address] [place] [address] PCP - General 01/26/21 Taylor Iqbal PA-C [id number] [address] Cardiology PA/PERSHING MISSILE CREWMEMBER: Auto-assigned Cardiology 09/01/14 documented as of this encounter
--- OUTSIDE RECORDS SUMMARY | 2025-08-23 23:18 | EXTERNAL MEDICAL SUMMARY RPT | Clinical Summary ---
Author Organization [facility] Address [address] [place] [address] Care Team Providers Care Academic Guidance Specialist Name Role Phone Taylor Iqbal PA-C Unavailable [phone] Мария Tyson MD Primary Care Provider [phone] Source Comments NOTE: The information displayed by Care Everywhere is extracted from the complete medical record and may not identify all current or past patient conditions.[facility] Allergies Active Allergy Reactions Criticality Noted Date Comments Amlodipine Itching Medium 01/15/2019 Medications aspirin 81 mg delayed release tablet Take 81 mg by mouth every other day Suspended hydroCHLOROthiaz lexii (HYDRODIURIL) 25 mg tabletIndication s:Essential hypertension Take 1 tablet (25 mg) by mouth daily 90 tablet 2 5 3:41 PM PDT 06/09/20 24 Suspended atorvastatin (LIPITOR) 40 mg tabletIndication s:S/P CABG (coronary artery bypass graft) Take 1 tablet (40 mg) by mouth daily 90 tablet 3 5 3:41 PM PDT 06/10/20 24 Suspended acetaminophen (TYLENOL) 500 mg tablet Take 500-1,000 mg by mouth 3 times daily as needed for pain, fever or headache (Max 3000 mg per 24 hours from all sources) 10/03/19 25 Suspended melatonin 3 mg tablet Take 1 tablet by mouth at bedtime as needed 10/03/19 25 Suspended psyllium husk (METAMUCIL) 0.4 gram Cap Take 1 capsule by mouth daily Suspended diphenhydrAMINE- acetaminophen (ACETAMINOPHEN PM) 25-500 mg tablet Take 1 tablet by mouth at bedtime as needed for sleep (Max 3000 mg of acetaminophen per 24 hours from all sources) Suspended lisinopriL (PRINVIL) 20 mg tabletIndication s:Essential hypertension Take 1 tablet (20 mg) by mouth 2 times daily. 180 tablet 5 3:41 PM PDT 01/24/20 25 026 Suspended atenoloL (TENORMIN) 50 mg tabletIndication s:Essential hypertension Take 1 tablet (50 mg) by mouth daily 90 tablet 5 5:53 PM PDT 06/19/20 25 026 Suspended Active Problems Patient Care Coordination No te Formatting of this note migh t be different from the original. Please triage due to Neurologic symptoms Problem Noted Date Diagnosed Date Frailty 06/19/2025 Overview (06/19/2025): Added per indicators from PATH completed on 04/01/2025 Essential hypertension 09/24/2024 Assessment & Plan (09/24/2024 1:12 PM PST): 09/24/24 Blood pressure is well controlled on: - lisinopril 20 mg two times a day - hydrochlorothiazide (HCTZ) 25 mg daily - atenolol 50 mg daily Tends to have white coat hypertension (blood pressure is normal at home but high in clinical settings) Has surgery tomorrow Blood pressure is well controlled at home Absence of bladder continence 04/03/2024 Assessment & Plan (04/03/2024 12:13 PM PDT): 04/03/24 Discussed new onset urinary incontinence which started in the last 1-2 months This has also been getting progressively worse Will check urinalysis but concern for spinal cord condition causing all the symptoms she is experiencing. Peripheral neuropathy 03/11/2024 Assessment & Plan (04/03/2024 12:12 PM PDT): 04/03/24 Work up for peripheral neuropathy showed no evidence of diabetes, thyroid disorder, low B12 Serum electrophoresis was normal Referred to Neurology but soonest appointment is 06/2024 (Referred for EMG as well) Concern to worsening of neuropathy and now increasing weakness of the right lower extremity causing change in gait, needing cane to walk to prevent falls. Has been referred to Physical Therapy for balance- scheduled for 04/10 Checking Copper level per Dr. Treadwell's recommendations. Assessment & Plan (03/11/2024 3:07 PM PDT): 03/11/24 I am referring you to Neurology, Physical Therapy for further evaluation At this time we know that you do not have diabetes or low B12 which can cause neuropathy Checking additional labs and studies to make sure there is no other cause of neuropathy If symptoms worsen please let us know Right leg weakness 03/11/2024 Assessment & Plan (04/03/2024 12:12 PM PDT): 04/03/24 Has worsened since appointment with me on 03/11/24 There is notable decrease in right lower extremity strength compared to left leg This is causing a change in gait and weakness noted especially with getting up from seated position Is ambulating with cane Discussed with Dr. Treadwell who recommended MRI of C spine (ordered). If this is normal, can then order MRI of brain. Dr. Treadwell will also try to move up neurology appointment. Assessment & Plan (03/11/2024 3:06 PM PDT): 03/11/24 Onset was about 11/2023 Concern for progressively worsening weakness of the R leg and foot without injury. Will evaluate with labs, nerve conduction study and Neurology referral Walk with a cane to prevent falls History of basal cell carcinoma 07/13/2021 History of colon polyps 03/07/2018 Elevated LFTs 07/23/2013 Overview (07/23/2013): Probably related to fatty liver. On statin, needs annual AST CKD (chronic kidney disease) stage 3, GFR 30-59 ml/min 07/25/2012 Personal history of malignant melanoma of skin 0 02/21/2011 Overview (07/23/2013): History of melanoma March 03, 2005, 0.75 millimeters deep, Juanjo level II, right thigh, history of basal cell carcinoma right lower leg and right upper lip. CAD (coronary artery disease) 06/17/2010 Overview (06/12/2024): Myocardial perfusion test 05/2024: Low risk study. No evidence of ischemia or scar. CARE PLAN 05/27/2010 Overview (08/04/2010): CAD/ HTN : Med Tx Plan Updated. Damien Latif MD, 05/27/2010 Encounter Type and Date: 08/04/10/mammogram Preferred Method of Contact: Exceptions: unknown Hyperlipidemia, unspecified 12/18/2008 Hypertensive chronic kidney disease with stage 1 through stage 4 chronic kidney disease, or unspecified chronic kidney disease 09/27/2005 S/P CABG (coronary artery bypass graft) 11/16/18 96 Overview (10/16/2015): Performed UW with five vessel by-pass Resolved Problems Problem Noted Date Diagnosed Date Resolved Date High blood pressure 04/16/2018 09/24/19 25 Overview (04/16/2018): Condition was added by Jordi pryor as part of pharmacy chronic condition review. HTN (hypertension) 09/23/2014 5 BAINS (dyspnea on exertion) 06/17/2010 Melanoma 02/21/2005 07/23/2013 Overview (05/13/2005): Superfical spreading melanoma. Back of R thigh 0.75 mm Pure hypercholesterolemia 12/15/2004 [facility] CIS CARE COORDINATION: ISCHEMIC CVD 12/22/1995 09/27/2005 Overview (09/27/2005): This item will trigger decision support tools related to health maintenance and therapy. Update the Problem List with additional items related to the patient s condition. Patients who are not part of this population should have this item resolved. Encounters Date Type Department Care Team Description 08/08/2025 Scanned Administrati ve Document [facility] Unsolicited Results Consent 07/02/2025 Notes Encounter (No LOS) [address] [address] Tato Sanchez RN Chronic Condition Review 06/20/2025 Orders Only [address] [phone] Мария Tyson MD Encounter for therapeutic drug level monitoring 06/19/2025 Orders Only [address] [phone] Мария Tyson MD Other general symptoms and signs 06/19/[address] [phone] Мария Tyson MD Refill Request 06/12/2025 Scanned Administrati ve Document [facility] Unsolicited Results Consent 06/05/2025 1:50 PM PDT Supplemental Visit [address] [phone] Need for vaccination (Primary Dx) from Last 3 Months Immunizations Immunization Administration Dates Next Due *HIGH DOSE SYRINGE* FluZONE (65+ Yrs) QUAD 06/13/2023,09/13/2021,06/27/2020 *HIGH DOSE SYRINGE* FluZONE (65+ yrs) TRI 07/29/2025,09/04/2024,06/19/2018,06/19 *STANDARD DOSE SYRINGE* (FluARIX,FluLAVAL,FluZONE) (6+ mos) TRI 09/23/2014,07/23/2013,07/24/2012,07/26,06/10/2010 *STANDARD DOSE SYRINGE* (FluLAVAL,FluZONE,FluARIX or AFLURIA) (6+ mos) QUAD 07/12/2019,06/06/2018 Herpes Zoster (SHINGRIX) 06/27/2023,03/27/2023 Herpes Zoster (ZOSTAVAX) 12/20/2016 Influenza 09/27/2005 Influenza (0.5 PF) 07/24/2012,07/26/2011 Influenza (0.50 PF) 06/10/2010 Influenza Vaccine, Quadrival ent, Adjuvanted (FLUAD QUAD) 07/14/2022 Moderna SARS-CoV-2 Vaccinati on (12 + y/o)(GRIP) 07/13/2021,11/11/2020,10/14/2020 PCV13 (PREVNAR 13, Pneumococ gail Conjugate Vaccine 13 Valent) 12/20/2016 PPV23 (PNEUMOVAX 23, Pneumoc occal Polysaccharide Vaccine) 07/23/2013 Pfizer SARS-CoV-2 Vaccinatio n (12 + y/o) (PURPLE CAP) 06/23/2021,11/19/2020,10/29/2020 Pfizer SARS-CoV-2 Vaccinatio n (12 + y/o)(Bivalent Formulation)(MEDINA CAP) 06/26/2022 Pfizer SARS-CoV-2 Vaccinatio n (COMIRNATY) (12+ y/o) 06/05/2025,06/25/2024,09/21/2023 Td (Tetanus, Diphtheria) 03/28/1991 Td PF (Tetanus, Diphtheria) 05/13/2005 Td PF (Tetanus, Diphtheria, TDVAX) 05/13/2005 Tdap (Tetanus, Diphtheria, a cellular Pertussis) 12/20/2016 Family History Medical History Relation Comments Drug abuse Brother 1 Stroke Brother 2 Alcohol abuse Father High blood pressure Father Hyperlipidemia Father Cancer - Breast Sister Relation Status Comments Brother 1 Brother 2 Father Sister Social History Tobacco Use Types Packs/Day Years Used Date Smoking Tobacco: Former Cigarettes 1 28 0 11/17/1967 - 11/17/1995 Smokeless Tobacco: Never Alcohol Use Standard Drinks/Week Comments Yes 1 (1 standard drink = 0.6 oz pur e alcohol) 1 glass wind day Overall Financial Resource Strain (CARDIA) Answe r Date Recorded How hard is it for you to pa y for the very basics like food, housing, medical care, and heating? Not very hard 04/01/2025 Hunger Vital Sign Answer Date Recorded Within the past 12 months, y ou worried that your food would run out before you got the money to buy more. Never true 04/01/20 25 Within the past 12 months, t he food you bought just didn't last and you didn't have money to get more. Never true 04/01/2025 PRAPARE - Transportation Answer Date Re corded In the past 12 months, has l ack of transportation kept you from medical appointments or from getting medications? No 03/18 In the past 12 months, has l ack of transportation kept you from meetings, work, or from getting things needed for daily living? No 04/01/2025 Housing Stability Vital Sign Answer Solis e Recorded In the last 12 months, was t here a time when you were not able to pay the mortgage or rent on time? No 04/01/2025 In the past 12 months, how m any times have you moved where you were living? 0 04/01/2025 At any time in the past 12 m [facility], were you homeless or living in a skilled nursing (including now)? No 04/01/2025 Comments No Sex and Gender Information Value Date Recorded Sex Assigned at Female 03/27/2023 1:22 PM PDT Legal Sex Female 11:00 AM PST Gender Identity Female 03/27/2023 1:22 PM PDT Sexual Orientation Not on file Last Filed Vital Signs Vital Sign Reading Time Taken Comments Blood Pressure 122/58 08/20/2025 1:57 AM PST Pulse 68 08/20/2025 1:57 AM PST Temperature 36.6 C (97.9 F) 08/20/2025 1:57 AM PST Respiratory Rate 16 08/20/2025 1:57 AM PST Oxygen Saturation 98% 08/20/2025 1:57 AM PST Inhaled Oxygen Concentration - - Weight 58.5 kg (129 lb) 09/04/2024 10:39 AM PST Height 164.3 cm (5' 4.69") 09/04/2024 10:[address] Body Mass Index 21.67 09/04/2024 10:39 AM PST Plan of Treatment Upcoming Encounters Date Type Department Care Team (Late st Contact Info) Description 09/30/2025 11:40 AM PST Office Visit [facility] Neurosurgery [address] [place] [address] Antoine Kee MD [address] [place] [address] Health Maintenance Due Date Last Done Comments Vaccine: RSV (1 - 1-dose 75+ series) 2020 Health Profile 04/01/2026 04/01/2025 Personal Assessment of Total Health (PATH) 04/01/2026 04/01/2025 Blood Pressure Check 07/21/2026 08/20/2025, 08/27/20 24 Vaccine: [id number] (2 - T d or Tdap) 12/20/2026 12/20/2016, 05/13/2005, 05/13/2005, Additional history exists COL-S Colonoscopy 04/30/2029 04/30/2024, , 05/10/2018, Additional history exists Vaccine: Pneumococcal Completed 12/20/2016, 013 Vaccine: Shingles Completed 06/27/2023, , 12/20/2016 FLU VACCINE Completed 07/29/2025, 08/18, 06/13/2023, Additional history exists Procedures * The patient is currently admitted. The information in this section might not be complete until the patient is discharged. 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
--- OUTSIDE RECORDS SUMMARY | 2025-08-23 23:18 | EXTERNAL MEDICAL SUMMARY RPT | Encounter Summary ---
Author Organization [facility] Address [address] [place] [address] Care Team Providers Care Warranty Administrator Name Role Phone Taylor Iqbal PA-C Unavailable [phone] Мария Tyson MD Primary Care Provider [phone] Encounter Details Date Type Department Care Team (Late st Contact Info) Description 07/16/2024 Automated Patient Message [address] [place] [phone] Social History Tobacco Use Types Packs/Day Years [...] Description 09/30/2025 11:40 AM PST Office Visit [facility] Neurosurgery [address] [place] [address] Antoine Kee MD [address] [place] [address] documented as of this encounter Visit Diagnoses Not on filedocumented in this encounter Care Teams Warranty Administrator Relationship Specialty Start Date End Date Мария Tyson MD [address] [place] [address] PCP - General 01/26/21 Taylor Iqbal PA-C [id number] [address] Cardiology PA/SLAB INSPECTOR: Auto-assigned Cardiology 09/01/14 documented as of this encounter
--- OUTSIDE RECORDS SUMMARY | 2025-08-23 23:18 | EXTERNAL MEDICAL SUMMARY RPT | Clinical Summary ---
Author Organization [facility] Address [address] [place] [address] Care Team Providers Care Head Of Visual Merchandising Name Role Phone Unavailable Primary Care Provider Unavailabl e Social History Tobacco Use Types Packs/Day Years Used Date Smoking Tobacco: Never Assessed Comments Unknown Sex and Gender Information Value Date Recorded Sex Assigned at Not on file Legal Sex Female 4:52 AM PST Gender Identity Not on file Sexual Orientation Not on file Plan of Treatment Not on file
--- OUTSIDE RECORDS SUMMARY | 2025-08-23 23:18 | EXTERNAL MEDICAL SUMMARY RPT | Encounter Summary ---
Author Organization [facility] Address [address] [place] [address] Care Team Providers Care Machine Group Leader Name Role Phone Taylor Iqbal PA-C Unavailable [phone] Мария Tyson MD Primary Care Provider [phone] Encounter Details Date Type Department Care Team (Late st Contact Info) Description 02/21/2024 Automated Outreach Text S ent - Pt [...] Description 09/30/2025 11:40 AM PST Office Visit [facility] Neurosurgery [address] [place] [address] Antoine Kee MD [address] [place] [address] documented as of this encounter Visit Diagnoses Not on filedocumented in this encounter Care Teams Machine Group Leader Relationship Specialty Start Date End Date Мария Tyson MD [address] [place] [address] PCP - General 01/26/21 Taylor Iqbal PAHowardC [id number] [address] Cardiology PA/KRAFT DIGESTER OPERATOR: Auto-assigned Cardiology 09/01/14 documented as of this encounter
--- OUTSIDE RECORDS SUMMARY | 2025-08-23 23:18 | EXTERNAL MEDICAL SUMMARY RPT | Encounter Summary ---
Author Organization [facility] Address [address] [place] [address] Care Team Providers Care Pl Sql Developer Name Role Phone Rasheed Tayloreddie Lezama PA-C Unavailable [phone] Мария Tyson MD Primary Care Provider [phone] Reason for Visit * Reason Comments Care Coordination Encounter Details Date Type Department Care Team (Latest Contact Info) Description 11/04/2024 [facility] Telephone Encounter [address] [address] Unspecified Care Coordination Social History Tobacco Use Types Packs/Day Years [...] on file documented as of this encounter Miscellaneous Notes * Telephone Encounter - Мария Tyson MD - 11/05/2024 9:28 AM PST Noted, thank you Мария Tyson MD * Telephone Encounter - Lauren Chacon LPN - 11/05/2024 8:14 AM PST FYI ONLY - Please done from your inbox and/or close encounter after review * Telephone Encounter - Lisa Mendiola - 11/04/2024 11:46 AM PST Caller is reporting care - referral. Patient Name: Katrin Krishna Caller: Jackie Additional Comments: Received referral and will reach out for availability on 11/06 for start of care. Ok to leave a detailed message: Yes Thank you, Lisa Mendiola documented in this encounter Plan of Treatment Upcoming Encounters Date Type Department Care Team (Late st Contact Info) Description 09/30/2025 11:40 AM PST Office Visit [facility] Neurosurgery [address] [place] [address] Antoine Kee MD [address] [place] [address] documented as of this encounter Visit Diagnoses Not on filedocumented in this encounter Care Teams Pl Sql Developer Relationship Specialty Start Date End Date Мария Tyson MD [address] [place] [address] PCP - General 01/26/21 Taylor Iqbal PA-C [id number] [address] Cardiology PA/TREE TRIMMER: Auto-assigned Cardiology 09/01/14 documented as of this encounter
--- OUTSIDE RECORDS SUMMARY | 2025-08-23 23:18 | EXTERNAL MEDICAL SUMMARY RPT | Encounter Summary ---
Author Organization [facility] Address [address] [place] [address] Care Team Providers Care Alodize Machine Operator Name Role Phone Rasheed Tayloreddie Lezama PA-C Unavailable [phone] Obdulio Barnett MD Primary Care Provider Мария Tyson MD Primary Care Provider [phone] Reason for Referral * Outpatient Service (Routine) - Canceled Specialty Diagnoses / Procedures Referred By Contkathy t Referred To Contact Gastroenterology Diagnoses Positive colorectal cancer screening using Cologuard test Chronic throat clearing Dysphagia, unspecified type Gastroesophageal reflux disease, unspecified whether esophagitis present Procedures REF GASTROENTEROLOGY COLONOSCOPY W/ BX SINGLE/ISELAT Anthony Funez MD Phone: tel: fax: [facility] [address] [place] [address] Referral ID Status Reason Start Date Expiration Date V isits Requested Visits Authorized [id number] Canceled Procedure Only 09/15/2020 03/16/2021 1 1 Encounter Details Date Type Department Care Team (Late Contact Info) Description 09/15/2020 Community Orders Non [facility] Provider Anthony Funez MD [address] [place] [address] Positive colorectal cancer screening using Cologuard test (Primary Dx); Chronic throat clearing; Dysphagia, unspecified type; Gastroesophageal reflux disease, unspecified whether esophagitis present Social History Tobacco Use Types Packs/Day Years [...] Description 09/30/2025 11:40 AM PST Office Visit [facility] Neurosurgery [address] [place] [address] Antoine Kee MD [address] [place] [address] documented as of this encounter Visit Diagnoses Diagnosis Positive colorectal cancer screening using Cologuard test- Primary Chronic throat clearing Other symptoms involving head and neck Dysphagia, unspecified type Gastroesophageal reflux disease, unspecified whether esophagitis present documented in this encounter Care Teams Alodize Machine Operator Relationship Specialty Start Date End Date Obdulio Barnett MD [facility] [address] [place] [address] PCP - General 08/27/20 01/25/21 Мария Tyson MD [address] [place] [address] PCP - General 01/26/21 Taylor Iqbal PA-C [id number] [address] Cardiology PA/REHABILITATION SUPERVISOR: Auto-assigned Cardiology 09/01/14 documented as of this encounter
--- OUTSIDE RECORDS SUMMARY | 2025-08-23 23:18 | EXTERNAL MEDICAL SUMMARY RPT | Encounter Summary ---
Author Organization [facility] Address [address] [place] [address] Care Team Providers Care Acquisition Analyst Name Role Phone Taylor Iqbal PA-C Unavailable [phone] Мария Tyson MD Primary Care Provider [phone] Encounter Details Date Type Department Care Team (Late st Contact Info) Description 08/14/2024 Automated Patient Message [address] [place] [phone] Social History Tobacco Use Types Packs/Day Years [...] Description 09/30/2025 11:40 AM PST Office Visit [facility] Neurosurgery [address] [place] [address] Antoine Kee MD [address] [place] [address] documented as of this encounter Visit Diagnoses Not on filedocumented in this encounter Care Teams Acquisition Analyst Relationship Specialty Start Date End Date Мария Tyson MD [address] [place] [address] PCP - General 01/26/21 Taylor Iqbal PA-C [id number] [address] Cardiology PA/AUDIO VIDEO MECHANIC: Auto-assigned Cardiology 09/01/14 documented as of this encounter
--- NOTE | 2025-08-24 07:57 | PROVIDER PROGRESS NOTE ---
Current Medications Current Medications Current Medications: Current Medications Generic Name Dose Route Start Last Admin Trade Name Freq PRN Reason Stop Dose Admin Acetaminophen 650 mg 08/20/25 08:04 08/21/25 12:43 Acetaminophen 325 Mg Tablet PO 650 mg Q4HR PRN Administration Pain or Fever > 38C (100.4F) Aspirin 325 mg 08/21/25 09:00 08/23/25 20:02 Aspirin Ec 325 Mg Tablet PO 325 mg BID LUZ Administration Calcium Carbonate/Glycine 500 mg 08/24/25 09:00 Calcium Carbonate Chew 500 Mg Tablet PO BID LUZ Cholecalciferol 50 mcg 08/24/25 09:00 Cholecalciferol 25 Mcg Tablet PO DAILY LUZ Hydromorphone HCl 0.5 mg 08/20/25 02:32 Hydromorphone 0.5 Mg/0.5 Ml Syringe IVP Q2H PRN Pain 8 to 10 Magnesium Oxide 400 mg 08/21/25 08:00 08/23/25 09:24 Magnesium Oxide 400 Mg Tablet PO 400 mg DAILYWM LUZ Administration Ondansetron HCl 4 mg 08/20/25 02:32 08/21/25 04:21 Ondansetron 4 Mg/2 Ml Vial IVP 4 mg Q6HR PRN Administration Nausea / Vomiting Oxycodone HCl 5 mg 08/20/25 08:04 08/23/25 19:03 Oxycodone 5 Mg Tablet PO 5 mg Q4HR PRN Administration Moderate Pain (Level 4-6) Polyethylene Glycol 17 gm 08/23/25 09:00 08/23/25 09:25 Polyethylene Glycol 3350 17 Gm Packet PO 17 gm DAILY LUZ Administration Sodium Chloride 10 ml 08/20/25 02:32 Sodium Chloride Flush 0.9% 10 Ml Syringe IVP PRN PRN NEEDED PER PROVIDER ORDERS Sodium Chloride 10 ml 08/20/25 09:00 08/24/25 01:05 Sodium Chloride Flush 0.9% 10 Ml Syringe IVP 10 ml 0100,0900,1700 LUZ Administration Objective Vital Signs/Intake & Output Vital Signs: Vital Signs x48h Temp Pulse Resp BP Pulse Ox 08/24/25 01:07 97.9 F 99 16 128/65 95 Intake & Output: Intake & Output 08/21/25 08/22/25 08/23/25 08/24/25 23:59 23:59 23:59 23:59 Intake Total 5235 / 5235 3080 / 3080 1300 / 1300 50 / 50 Output Total 725 / 725 1550 / 1550 500 / 500 400 / 400 Balance 4510 / 4510 1530 / 1530 800 / 800 -350 / -350 Lab Results 08/23/25 05:25 08/23/25 05:25 Assessment/Plan Problem List (1) Femur fracture, left: Qualifiers: Encounter type: subsequent encounter Femur location: distal physis (incl. Salter-Hicks) Fracture healing: with routine healing Salter-Hicks Fracture Type: unspecified configuration Qualified Code(s): S79.102D - Unspecified physeal fracture of lower end of left femur, subsequent encounter for fracture with routine healing (2) Ankle fracture, right: Qualifiers: Encounter type: initial encounter Fracture type: closed Qualified Code(s): S82.891A - Other fracture of right lower leg, initial encounter for closed fracture (3) Postoperative anemia: (4) Acute urinary retention: (5) Hypertension: Qualifiers: Hypertension type: unspecified Qualified Code(s): I10 - Essential (primary) hypertension (6) S/P CABG x 5:
[2025-08-24] MEDS: CHOLECALCIFEROL 25 MCG TABLET PO SCH (08:07)
[2025-08-24] MEDS: CALCIUM CARBONATE CHEW 500 MG TABLET PO SCH (08:07)
[2025-08-24 08:11] VITALS: TEMP 98.1
[2025-08-24 08:38] LABS: HCT - HEMATOCRIT 25.7 % (37.0-47.0); HGB - HEMOGLOBIN 8.5 g/dL (12.0-16.0); MEAN PLATELET VOLUME 10.1 fL (7.9-10.8); PLT - PLATELET COUNT 141.0 10^3/uL (130-450); RED CELL DISTRIBUTION WIDTH 12.8 % (12.0-15.0)
[2025-08-24 09:04] LABS: BUN - BLOOD UREA NITROGEN 14.0 mg/dL (6-20); CARBON DIOXIDE - CO2 25.0 mmol/L (21-32); CREATININE 0.7 mg/dL (0.6-1.3); GFR - MDRD 81.0 (>89)
--- NOTE | 2025-08-24 09:51 | Discharge Summary ---
"Discharge Summary Admit Date: 08/20/25 Discharge Date: 08/24/25 Discharging Provider: Dr. Susana Reid Primary Care Provider: Karena Min Code Status: Attempt Resuscitation Discharge Facility Name: [facility] DIAGNOSES Discharge Diagnoses with Status of Each Condition: Femur fracture, leftpatient presented with a comminuted angulated fracture of the left distal femur and right distal fibular fracture. Completed retrograde intramedullary nail fixation on 08/20. Tolerated procedure well. Orthopedic surgery recommends discharge on aspirin 325 mg twice a day, follow-up with them in 10 to 14 days for staple removal. Strict nonweightbearing on left lower extremity. Continue pain control with Tylenol as needed for mild pain, as well as oxycodone for moderate or severe pain. Ankle fracture, rightright distal fibula fracture to be managed nonoperatively. Can be weightbearing as tolerated with a Aircast of the right lower extremity. Postoperative anemiaresolved. Patient's hemoglobin is around 11.3, and dropped to 8.4 postoperatively. She had some symptoms, and was hypotensive, so was transfused 1 unit packed red blood cells. Hemoglobin is now 8.5, and has been stable. Minimal blood loss or saturation of her Band-Aid. Advised to recheck CBC in 1 week to ensure stability. Acute urinary retentionresolved. She was straight catheterized, and Goodrich catheter was placed, and then removed. She successfully passed a trial of void. S/p CABG x 5patient with a history of CAD. Uneventful cardiac history since. Maintained on aspirin 81 mg daily. Continue higher dose as above for DVT prophylaxis at this time, and then can switch to 81 mg daily after cleared with orthopedic surgery. HPI History of Present Illness: Per Dr. Karena Min: Mrs. Krishna is a 80F with a h/o hypertension. She presented to the ED after a fall. She explained that she was walking down some stairs and lost her balance. she fell on her left side, she did not hit her head. She did not experience any lightheadness or chestpain prior to fall. Imaging demonstrated distal femur fracture as well as left ankle fracture. ED physician discussed case with the orthopedic service who agreed to see her in consultation. This visit was performed using telehealth tools, including phone and live-video. patient provided verbal consent to complete this telemedicine encounter. During the time my interview and evaluation, the patient was located at [facility] in the [facility], I was located in [place]. CONSULTS | PROCEDURES Consultations: Orthopedic surgery Procedures: Retrograde intramedullary nail fixation on 08/20 Ankle x-ray Knee x-ray HOSPITAL COURSE Hospital Course: Patient is a 80-year-old female with a history of hypertension, remote cardiac disease with a CABG who presented after mechanical fall. She was walking downstairs and lost balance. Imaging showed a comminuted, angulated fracture of the left distal femur and right distal fibular fracture. She completed a retrograde intramedullary nail fixation on 08/20, and tolerated the procedure well. She will be discharged home on aspirin 325 mg twice a day, and then follow-up in the outpatient with orthopedic surgery for staple removal. She is strict nonweightbearing on the left side, and weightbearing as tolerated on the right lower extremity with Aircast in place. Her course was complicated with some postoperative anemia which required 1 unit transfusion. Her hemoglobin has been stable since. Her site looks dry and intact. She was discharged to [facility], [facility] for further rehabilitation. She was advised close follow-up with primary care provider as well as orthopedic surgery. ALLERGIES Allergies Allergy/AdvReac Type Severity Reaction Status Date / Time No Known Drug Allergies Allergy Verified 08/19/25 18:53 MEDICATIONS Ambulatory Orders Medication Instructions Recorded Confirmed atenolol 50 mg tablet 50 mg PO QAM 08/20/25 psyllium 1 packet PO PRN PRN constipa tion 08/20/25 08/20/25 aspirin 325 mg tablet,delayed 325 mg PO BID 14 days #2 8 tabs 08/24/25 release calcium carbonate 500 mg (2.5 x 200 mg calcium (500 08/24/25 mg)) PO BID #30 tabs cholecalciferol (vitamin D3) 25 50 mcg (2 x 25 mcg (1, 000 unit)) 08/24/25 mcg (1,000 unit) tablet PO DAILY #30 tabs magnesium oxide 400 mg (241.3 mg 400 mg PO DAILYWM #30 tabs 08/24/25 magnesium) tablet oxycodone 5 mg tablet 5 mg PO Q4HR PRN severe pain 08/24/25 (scale score 7-10) #14 tabs PHYSICAL EXAM AT DISCHARGE Vital Signs: Vital Signs x48h Temp Pulse Resp BP Pulse Ox 08/24/25 08:00 98.1 F 104 H 16 144/77 H 95 General Appearance: positive No acute distress and Alert; negative Anxious Eyes Bilateral: positive Normal inspection, PERRL and EOMI ENT: positive ENT inspection nml, Pharynx nml and No signs of dehydration Neck: positive Nml inspection, Thyroid nml and No JVD Respiratory: positive Chest non-tender, No respiratory distress and Breath sounds nml; negative Wheezes, Rales or Rhonchi Cardiovascular: positive Regular rate & rhythm, No murmur and No gallop; negative Tachycardia or Systolic murmur Abdomen: positive Non-tender, No organomegaly and No distention; negative Guarding or Splenomegaly Back: positive Nml inspection; negative CVA tenderness (R) or CVA tenderness (L) Skin: positive Color nml, No rash, Warm and Dry Extremities: positive Full ROM (Limited range of motion of left lower extremity due to pain. Able to wiggle bilateral toes. DP and PT pulses intact bilaterally.) and Other (Left lower extremity with Kerlix noted on left anterior hip with minimal drainage or bleeding. Fredo wrap all down left leg. Some bruising noted around left knee. Right ankle with extensive ecchymosis throughout with Fredo wrap in place.) Neurologic/Psychiatric: positive Oriented x3 and Mood/affect nml LABS 08/24/25 08:11 08/24/25 08:11 DIAGNOSTIC IMAGING Diagnostic Imaging Results: Final report reviewed QUALITY (Female Hip Fx Only) Was patient sent home on osteoporosis medication?: Yes FOLLOW UP Follow Up: Follow up with PCP. Follow up with orthopedic surgery. TIME SPENT Time Spent in Discharge (Minutes): 35 Discharge Plan Discharge Patient Disposition: 03 SNF DC/Xfer Condition: Good Prescriptions: New aspirin 325 mg Tablet,Delayed Release (Dr/Ec) 325 mg PO BID 14 Days Qty: 28 0RF calcium carbonate 200 mg calcium (500 mg) Tablet,Chewable 500 mg PO BID Qty: 30 0RF cholecalciferol (vitamin D3) 25 mcg (1,000 unit) Tablet 50 mcg PO DAILY Qty: 30 0RF magnesium oxide 400 mg (241.3 mg magnesium) Tablet 400 mg PO DAILYWM Qty: 30 0RF oxycodone 5 mg Tablet 5 mg PO Q4HR PRN (Reason: severe pain (scale score 7-10)) Qty: 14 0RF Continued atenolol 50 mg tablet 50 mg PO QAM psyllium Packet 1 packet PO PRN PRN (Reason: constipation) Rx Instructions: mix into at least 8 oz of water or juice before administering Activity Restrictions: Strict nonweightbearing o Diet: Regular Health Concerns: You had surgery to fix a broken bone in your left thigh (femur) near your knee. The surgeon placed a metal angi inside the bone through your knee joint to hold the bone in the correct position while it heals. This is called a retrograde nail. Weight-Bearing and Walking - Do not put weight on your left leg right away. - Your surgeon will tell you when you can put more weight on your leg, usually starting around 6 weeks after surgery. - Most patients can put full weight on the leg around 12-15 weeks after surgery, once the bone shows signs of healing on X-rays. - Use your walker or crutches as instructed until your surgeon says you can stop . Knee Movement and Exercise - Start moving your knee right away to prevent stiffness - Gently bend and straighten your knee several times per day, even while resting in bed - You may experience some knee pain, which is common after this surgery - Physical therapy will help you regain strength and movement in your hip and knee - Your goal is to be able to fully straighten your knee and bend it to at least 90-120 degrees Wound Care - Keep your surgical incision clean and dry - You may shower once your surgeon says it is safe, usually after the first follow-up visit - Do not soak the incision in a bathtub, pool, or hot tub until it is completely healed - Watch for signs of infection: increasing redness, warmth, swelling, drainage, or fever above 101.5F Pain Management - Take pain medication as prescribed - Use ice on your knee for 15-20 minutes at a time to reduce swelling and pain - Elevate your leg above the level of your heart when resting Blood Clot Prevention - Take blood thinner medication if prescribed - Move your ankles up and down frequently throughout the day - Do not cross your legs when sitting - Call your doctor immediately if you develop calf pain, swelling, chest pain, or shortness of breath Follow-Up Care - Attend all scheduled appointments with your surgeon - You will need regular X-rays to check how your bone is healing - Bone healing typically takes 12-15 weeks, but this varies for each person - Your surgeon will adjust your weight-bearing and activity restrictions based on your healing progress Call your surgeon's office if you experience: - Fever above 101.5F - Increasing pain not controlled by medication - Redness, warmth, or drainage from your incision - Numbness or tingling in your leg or foot - Inability to move your toes - Chest pain or difficulty breathing Activity Restrictions - Do not drive until your surgeon says it is safe - Avoid twisting movements at your knee - Do not kneel on the operated leg - Gradually increase your activity as directed by your surgeon and physical therapist What to Expect - Most patients achieve good to excellent results after this surgery - Full recovery takes several months - You should be able to return to most daily activities, though the timeline varies for each person - Some patients experience ongoing mild knee discomfort, which is common after this type of surgery - Do not advance your weight-bearing or activity level without your surgeon's approval - Attend all follow-up appointments - Contact your surgeon's office with any questions or concerns Print Language: Sami Patient Instructions: Surg Dc Stand Alone Forms: SNF Discharge, PCP List Report called to and time (if no answer, doc. time of each call attempted): Peggy butt RN 1253 PM Vitals documented within 30 minutes of discharge?: Yes"
[2025-08-24] MEDS: SENNA 8.6 MG TABLET PO SCH (09:56)
--- NOTE | 2025-08-24 12:01 | POST OP PROGRESS NOTE ---
Subjective General Admit Date: 08/20/25 Procedure Date: 08/20/25 Post Op Days: 4 Procedure Performed: Retrograde nail left distal femur Other Other Information/Narrative: The patient states she is doing okay she has not put any weight on it which is exactly what I want her to do. Her pain is fairly well-controlled. Ortho Surgical Progress Note Problem List Discharge Instructions: I think the patient is doing well. I want her to remain nonweightbearing and I will start her on partial weightbearing probably in 3 to 4 weeks but she is to be nonweightbearing or at most just toe-touch weightbearing but I do not want any put any significant weight on it.It is okay to shower but I do not want her to submerge the wound in water so no hot tubs no bathtubs but it is okay to let water run over it and then just cover it with an Fredo wrap.Follow-up with Dr. Cosby in about 10 days for suture removal. Exam Exam Vital Signs: Vital Signs x48h Temp Pulse Resp BP Pulse Ox 08/24/25 08:00 36.7 C 104 H 16 144/77 H 95 No erythema no drainage no signs and symptoms of any infection or DVT. Dressing is intact.
--- NOTE | 2025-08-24 12:04 | OPERATIVE REPORT ---
Operative Report General Admit Date: 08/20/25 Procedure Data: Operation Date: 08/20/25 13:00 Proposed Procedures p ORIF Femur, retrograde intramedullary angi(Left) - Yaw Cosby DO Actual Procedures p ORIF Femur, retrograde intramedullary angi(Left) - Yaw Cosby DO Pre-Op Diagnosis: left distal femur fracture Anesthesia Type General Case Staff Anesthesia Provider: Otis Nguyễn Assisting Provider: Kianna Larsen Rep: Rob Wright ([employer] [employer]). Case Times Into Recovery: 08/20/25 15:28 Procedure Start: 08/20/25 13:58 Procedure End: 08/20/25 15:23 Time out: 08/20/25 13:57 Implants TRIGEN L-P SCREW [id number] TRIGEN L-P SCREW [id number] NAIL FEM RETRO [id number] TRIGEN L-P SCREW [id number] Pre-Op Diagnosis: Left distal femur supracondylar fracture with intra-articular extension Post Op Diagnosis: Left distal femur supracondylar fracture with intra-articular extension Procedure Note Indications: Left distal femur supracondylar fracture with intra-articular extension Other Other Information/Narrative: Retrograde nailing is a complex procedure that needs assistance. MACIE Sultana assisted in the case to help with retraction as well as fracture reduction so I could insert the nail. Patient was taken to the operative suite and after undergoing a general anesthetic the left knee was prepped and draped in usual sterile fashion we did not use a tourniquet secondary to being a retrograde angi we went ahead and made about a six 7 cm incision over the distal femur at the patella and then we made a median parapatellar incision and retracted the patella laterally. We could see a split of the fracture into the joint so we got the pelvic reduction clamps and we reduced the fracture and held it in place for the procedure. We then first gain entrance using our starting point with about a 1 cm up from the PCL. We inserted our guidewire and then we started reaming. We reamed up to the a ppropriate size and then we put in a 300 mm retrograde nail. We put in 3 screws through the distal femur and fracture. Then with the use of the targeting device from [facility] we put in 1 anterior posterior locking screw in the proximal femur. We got final x-rays and it was found to be in excellent alignment. The wound was irrigated and closed with combination of strata fix 2- 0 Vicryl and earle. Sterile dressing was applied the patient was awakened and transferred stable to recovery room
--- NOTE | 2025-08-24 12:15 | POST OP PROGRESS NOTE ---
Subjective General Admit Date: 08/20/25 Procedure Date: 08/20/25 Post Op Days: 4 Procedure Performed: Retrograde nail left distal femur Ortho Surgical Progress Note Problem List Discharge Instructions: The patient is doing very well postoperatively. I have seen her over the past couple days and she has just continued to remain stable and she can be discharged to the rehab when a bed is available. I want her to be nonweightbearing until I follow-up with her in the office and then we will discuss toe-touch weightbearing at that time.She can use an adult aspirin 1 p.o. twice daily for DVT prophylaxis. Exam Exam Vital Signs: Vital Signs x48h Temp Pulse Resp BP Pulse Ox 08/24/25 08:00 36.7 C 104 H 16 144/77 H 95 Dressings clean dry and intact there is no erythema no drainage no signs and symptoms of any infection.
[2025-08-24 13:17] VITALS: BP 144/70
== END 2025-08-24 13:18 | DRG 481 ==
LOC: ED 18:42 → ICU 08-20 01:30 → MS3 08-20 13:50
PROVIDERS: ADMIT Hospitalist; ATTEND Hospitalist
PROC: ORIFFEM (2025-08-20 13:00)